=== PATIENT | female | born 1935 | race Caucasian/White ===

== ENCOUNTER 2022-07-15 01:45 | Emergency (ER) | payer MEDICARE, OTHER, SELFPAY ==
[2022-07-15] VITALS (8 sets, daily range): BP systolic 144–162; BP diastolic 67–71; PULSE 68–88; RESP 17; TEMP 36.7; O2SAT 95–99; BMI 23.4
--- NOTE | 2022-07-15 01:57 | ED_ITS ---
HPI - General Adult General Chief complaint: Nausea/Vomiting/Diarrhea Stated complaint: Nausea and Diarreha Time Seen by Provider: 07/15/22 01:51 History of Present Illness HPI narrative: 86-year-old woman with history of hyperlipidemia, reflux, hypothyroidism, depression, prednisone dependent arthritis and stroke earlier this year with left-sided significant weakness, wheelchair required for all that pivot transfers, unable to move her left arm and left ankle-foot orthosis. She pre sents with approximately a week of increasingly watery foul-smelling diarrhea. She has been taking Imodium for the past 2 days has not been helpful. She notes that she was treated for for bladder infection with antibiotics approximately a month ago. She has been taking probiotics. She complains of some mild abdominal pain but no fevers. She has been eating a soft bland diet over the last couple of days. She complains of no headaches, dyspnea or orthopnea. She notes that she is feeling globally weak and is worried that she is dehydrated. Related Data Previous Rx's Medication Instructions Recorded diphenoxylate-atropine 2.5 1 tab PO BID PRN diarrhea #20 tabs 07/15/22 mg-0.025 mg tablet (Lomotil) Allergies Allergy/AdvReac Type Severity Reaction Status Date / Time morphine Allergy Verified 07/15/22 02:48 Sulfa (Sulfonamide Allergy Verified 07/15/22 02:48 Antibiotics) gabapentin AdvReac Verified 07/15/22 02:48 Review of Systems Review of Systems Narrative: Remainder of complete review of systems is otherwise unremarkable except for that included in the HPI. Patient History Medical History (Updated 07/15/22 @ 05:42 by Reyna Urban MD) Arthritis Chronic GERD Hyperlipidemia Hypothyroidism (acquired) Stroke Social History Smoking Status: Never smoker Exam Initial Vital Signs Initial Vital Signs: Vital Signs Temperature 98.0 F 07/15/22 02:11 Pulse Rate 80 07/15/22 02:11 Respiratory Rate 17 07/15/22 02:11 Blood Pressure 144/71 H 07/15/22 02:11 Pulse Oximetry 95 07/15/22 02:11 Oxygen Delivery Method 07/15/22 02:11 General: Frail, chronically ill-appearing in no acute distress. Able to participate completely with history and physical. HEENT: Moist mucous membranes, normal sclera with reactive pupils, Neck: No JVD, supple Respiratory: Lungs are clear to auscultation, no wheezing no rales no rhonchi. Full and symmetrical air movement Cardiac: Regular rate and rhythm no murmurs no bruits Abdomen: Soft, tender from mid epigastrium into the left lower quadrant without rebound or guarding, good bowel tones, no flank pain Skin: Warm and dry, no rashes Neurologic: Left arm paralysis, left leg weakness. Left facial droop. Unchanged from her baseline Extremities: No trauma, well perfused, left AFO in place Psych: Cooperative, appropriate insight and affect Course Orders Ordered: ED Orders 07/15/22 02:13 Consult to [facility] [place] - Priming Powder Premix Blender Stat 07/15/22 02:15 Urinalysis and Microscopic Stat 07/15/22 02:16 CT abdomen pelvis w con Stat 07/15/22 02:38 GI Panel (Film Array) Stat 07/15/22 02:55 Complete Blood Count AUTO DIFF Stat Comprehensive Metabolic Panel Stat Magnesium Stat 07/15/22 03:00 COVID19 -Nasal RAPID/Pre-Proc Stat Discontinued Medications Diphenoxylate HCl/Atropine (Diphenoxylate/Atrop 2.5/0.025 Tablet) 2 each PO NOW ONE Stop: 07/15/22 05:21 Last Admin: 07/15/22 05:33 Dose: 2 each Sodium Chloride (Normal Saline 0.9%) 1,000 mls @ 1,000 mls/hr IV BOLUS ONE Stop: 07/15/22 04:40 Last Admin: 07/15/22 05:00 Dose: 1,000 mls/hr Documented By: DEANA Magnesium Sulfate (Magnesium Sulfate) 2 gm in 50 mls @ 150 mls/hr IV NOW ONE Stop: 07/15/22 04:00 Last Infusion: 07/15/22 05:00 Dose: 0 mls/hr Documented By: DEANA Co-signed By: LEESA Admin: 07/15/22 04:40 Dose: 150 mls/hr Documented By: DEANA Co-signed By: LEESA Potassium Chloride (Potassium Chloride 20 Meq/15 Ml Udc) 40 meq PO NOW ONE Stop: 07/15/22 03:42 Last Admin: 07/15/22 05:00 Dose: 40 meq Documented By: DEANA Vital Signs Vital signs: Vital Signs - 8 hr 07/15/22 02:11 07/15/22 04:04 07/15/22 04:30 Temperature 98.0 F Pulse Rate 80 77 88 Respiratory Rate 17 Blood Pressure 144/71 H Pulse Oximetry 95 98 99 Oxygen Delivery Method Room Air 07/15/22 04:44 07/15/22 04:44 Temperature Pulse Rate 85 Respiratory Rate Blood Pressure 158/68 H Pulse Oximetry 98 Oxygen Delivery Method Medical Decision Making Lab Data Result diagrams: 07/15/22 02:55 07/15/22 02:55 Labs: Lab Results 07/15/22 07/15/22 07/15/22 Range/Units 02:38 02:55 02:55 WBC 9.4 (4.5-11.0) X10^3/uL RBC 4.13 (4.0-5.2) X10^6/uL Hgb 12.8 (12.0-16.0) g/dL Hct 37.1 (36-46) % MCV 89.8 (80-100) fL MCH 31.0 (26-34) PG MCHC 34.5 (30-36) % RDW 13.8 (11.6-14.8) % Plt Count 224 (150-400) X10^3/uL Neut % (Auto) 79.9 H (50-75) % Lymph % (Auto) 9.8 L (25-40) % Desha % (Auto) 9.4 (3-14) % Eos % (Auto) 0.5 L (2-4) % Baso % (Auto) 0.4 (0-2) % Neut # (Auto) 7500 H (4225-9740) /uL Lymph # (Auto) 900 L (1666-7499) /uL Desha # (Auto) 900 (0-900) /uL Eos # (Auto) 0 (0-450) /uL Baso # (Auto) 0 (0-100) /uL Sodium 135 L (137-145) mmol/L Potassium 3.2 L (3.4-5.1) mmol/L Chloride 103 (98-107) mmol/L Carbon Dioxide 27 (22-32) mmol/L BUN 16 (7-17) mg/dL Creatinine 0.78 (0.52-1.04) mg/dL Estimated GFR > 60 (>60) mL/min BUN/Creatinine Ratio 20.5 (6-22) Glucose 117 H (80-110) mg/dL Calcium 8.8 (8.4-10.2) mg/dL Magnesium 1.0 L (1.6-2.3) mg/dL Total Bilirubin 1.3 (0.2-1.3) mg/dL AST 24 (14-36) IU/L ALT 17 (<35) IU/L Alkaline Phosphatase 63 (38-126) U/L Total Protein 6.3 (6.3-8.2) g/dL Albumin 3.3 L (3.5-5.0) g/dL Globulin 3.0 (1.7-4.1) g/dL Albumin/Globulin Ratio 1.1 (1.0-2.8) Stl C. cayetanensis PCR Not detected (Not Detect) Stool Rotavirus (PCR) Not detected (Not Detect) Stool Adenovirus (PCR) Not detected (Not Detect) Stool Astrovirus (PCR) Not detected (Not Detect) Stool Cryptosporidium PCR Not detected (Not Detect) Stl E.coli Shiga Tox PCR Not detected (Not Detect) St Sh/Enteroin Ecoli PCR Not detected (Not Detect) Stool E coli O157 PCR Not Reportable Stl Enterotoxigenic E PCR Not detected (Not Detect) Stool EPEC (PCR) Not detected (Not Detect) Stl E. histolytica PCR Not detected (Not Detect) Stool Giardia Lamblia PCR Not detected (Not Detect) Stool Sapovirus (PCR) Not detected (Not Detect) Stl P. shigelloides PCR Not detected (Not Detect) St Y.enterocolitica PCR Not detected (Not Detect) Stool Vibrio (PCR) Not detected (Not Detect) Stl Vibrio cholerae PCR Not detected (Not Detect) Stl Enteroaggr Ecoli PCR Not detected (Not Detect) Stl Norovirus GI/GII PCR Not detected (Not Detect) Campylobacter (PCR) Not detected (Not Detect) C. difficile Tox (PCR) Not detected (Not Detect) SARS-CoV-2 (PCR) (Negative) Salmonella (PCR) Not detected (Not Detect) 07/15/22 Range/Units 03:00 WBC (4.5-11.0) X10^3/uL RBC (4.0-5.2) X10^6/uL Hgb (12.0-16.0) g/dL Hct (36-46) % MCV (80-100) fL MCH (26-34) PG MCHC (30-36) % RDW (11.6-14.8) % Plt Count (150-400) X10^3/uL Neut % (Auto) (50-75) % Lymph % (Auto) (25-40) % Desha % (Auto) (3-14) % Eos % (Auto) (2-4) % Baso % (Auto) (0-2) % Neut # (Auto) (5092-8685) /uL Lymph # (Auto) (9356-7796) /uL Desha # (Auto) (0-900) /uL Eos # (Auto) (0-450) /uL Baso # (Auto) (0-100) /uL Sodium (137-145) mmol/L Potassium (3.4-5.1) mmol/L Chloride (98-107) mmol/L Carbon Dioxide (22-32) mmol/L BUN (7-17) mg/dL Creatinine (0.52-1.04) mg/dL Estimated GFR (>60) mL/min BUN/Creatinine Ratio (6-22) Glucose (80-110) mg/dL Calcium (8.4-10.2) mg/dL Magnesium (1.6-2.3) mg/dL Total Bilirubin (0.2-1.3) mg/dL AST (14-36) IU/L ALT (<35) IU/L Alkaline Phosphatase (38-126) U/L Total Protein (6.3-8.2) g/dL Albumin (3.5-5.0) g/dL Globulin (1.7-4.1) g/dL Albumin/Globulin Ratio (1.0-2.8) Stl C. cayetanensis PCR (Not Detect) Stool Rotavirus (PCR) (Not Detect) Stool Adenovirus (PCR) (Not Detect) Stool Astrovirus (PCR) (Not Detect) Stool Cryptosporidium PCR (Not Detect) Stl E.coli Shiga Tox PCR (Not Detect) St Sh/Enteroin Ecoli PCR (Not Detect) Stool E coli O157 PCR Stl Enterotoxigenic E PCR (Not Detect) Stool EPEC (PCR) (Not Detect) Stl E. histolytica PCR (Not Detect) Stool Giardia Lamblia PCR (Not Detect) Stool Sapovirus (PCR) (Not Detect) Stl P. shigelloides PCR (Not Detect) St Y.enterocolitica PCR (Not Detect) Stool Vibrio (PCR) (Not Detect) Stl Vibrio cholerae PCR (Not Detect) Stl Enteroaggr Ecoli PCR (Not Detect) Stl Norovirus GI/GII PCR (Not Detect) Campylobacter (PCR) (Not Detect) C. difficile Tox (PCR) (Not Detect) SARS-CoV-2 (PCR) Negative (Negative) Salmonella (PCR) (Not Detect) Imaging Data CT scan - abdomen/pelvis: Radiologist's Impression: Diffuse circumferential wall thickening of the descending and sigmoid colon with pericolonic inflammatory changes compatible with colitis. Questionable left perianal fistula to the left gluteal creases detailed. Prominent uterine vessels which can be seen in the setting of pelvic congestion syndrome. MDM Narrative Medical decision making narrative: 86-year-old woman presents with approximately a week of diarrhea. She has mild hypokalemia and mild hypo magnesemia. After electrolyte replacement and a L of fluid she is feeling significantly better. There is no evidence of Clostridium difficile or other virus identified on her PCR stool sample. CT scan shows colitis without acute diverticulitis, free air, free fluid or surgical abnormalities. The CT scan mentions a ?questionable left perianal fistula to left gluteal crease?. There is no clinical correlation to explain this questionable CT finding. Patient has significant support at home. They are working on getting her into assisted living after her recent stroke. She is able to eat will give her a dose of Lomotil and a prescription to continue at home. Lab her return with fevers, diarrhea persisting more than the next number of days, any blood in the stool or worsening abdominal pain. She will be safe for home discharge Discharge Plan Departure Patient Disposition: Home Clinical Impression: Diarrhea, Colitis Instructions: DI for Colitis Activity Restrictions/Additional Instructions: Thank you for coming in today With your stool sample we did not find any obvious viral explanation for your diarrhea. There is no abnormal bacterial pathology, parasites or Clostridium difficile. Your CT scan does show that your colon is inflamed on the left side which is what is causing the bit of pain that you are experiencing. There is no evidence of infection or surgical abnormality. Your potassium and magnesium were slightly low and you were mildly dehydrated. All of these were replaced and you said that you are feeling better. At this point using medication to slow down the diarrhea and giving your body time to heal is the appropriate treatment. I am going to give you a prescription for Lomotil to see if this is more effective for you than the Imodium has been. Please do continue to try and stay as hydrated as possible and the bland simple diet you have been eating continues to be appropriate. I would recommend avoiding milk products until you are completely over the diarrhea. If you are noticing increasing pain, fevers, blood in your stools or new findings that would be very appropriate to return to the emergency department. Prescriptions: New diphenoxylate-atropine [Lomotil] 2.5-0.025 mg tablet 1 tab PO BID PRN (Reason: diarrhea) Qty: 20 0RF
--- NOTE | 2022-07-15 02:16 | DI.CT.S_ITS ---
PROCEDURE: CT ABDOMEN PELVIS W CON INDICATIONS: left side abdominal pain and diarrhea TECHNIQUE: After the administration of intravenous contrast, axial sections acquired from the lung bases to the pubic symphysis. Coronal and sagittal reformats were performed. For radiation dose reduction, the following was used: automated exposure control, adjustment of mA and/or kV according to patient size. COMPARISON: None. FINDINGS: Image quality: Excellent. Lung bases: No pleural effusion. ABDOMEN: Liver: Unremarkable. Gallbladder: Not visualized, presumed surgically absent Biliary ducts: Mildly prominent caliber within normal limits for age and post cholecystectomy state Pancreas: Unremarkable. Spleen: Unremarkable. Adrenal Glands: Unremarkable. Kidneys and Ureters: Unremarkable. Stomach and Bowel: Mild wall thickening of the sigmoid colon and to a lesser extent the descending colon. Mild prominence of the Vasa recta and possible adjacent fat stranding. No bowel obstruction. Possible/equivocal perianal fistula in the soft tissues of the left ischial anal fossa tracking towards the left aspect of the cleft (). Peritoneum: No substantial intraperitoneal fluid. No free air. Ventral Wall: No hernias. Abdominal Nodes: No retroperitoneal or mesenteric adenopathy by size criteria. Vessels: Aorta and inferior vena cava are normal in size. PELVIS: Pelvic Organs: Unremarkable. Bladder: Unremarkable. Pelvic Nodes: No enlarged lymph nodes. Miscellaneous: No hernias are seen. Bones: Multilevel degenerative change of the visualized spine. 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 IMPRESSION: 1. Wall thickening of the sigmoid colon and to a lesser extent the descending colon suggestive of a colitis with infectious or inflammatory etiologies possible. 2. Possible/equivocal left perianal fistula versus artifact. Correlation with physical examination may be helpful. If clinically indicated MRI of the pelvis with and without contrast, perianal fistula protocol, could be obtained for further evaluation. This report is concordant with the preliminary report. Dictated by: Carlos Medeiros M.D. on 07/15/2022 at 8:04 Approved by: Carlos Medeiros M.D. on 07/15/2022 at 8:20
--- NOTE | 2022-07-15 02:24 | PC.NURSE ---
pt 2 person assist to commode, then when finished to the stretcher
[2022-07-15 03:10] LABS: Add Manual Diff / Slide Review NO; Basophils Absolute Auto 0 /uL (0-100); Basophils Percent Auto 0.4 % (0-2); Eosinophils Absolute Auto 0 /uL (0-450); Eosinophils Percent Auto 0.5 % (2-4); Hematocrit 37.1 % (36-46); Hemoglobin 12.8 g/dL (12.0-16.0); Lymphocytes Absolute Auto 900 /uL (1100-4500); Lymphocytes Percent Auto 9.8 % (25-40); Mean Corpuscular HGB Conc 34.5 % (30-36); Mean Corpuscular Volume 89.8 fL (80-100); Monocytes Absolute Auto 900 /uL (0-900); Monocytes Percent Auto 9.4 % (3-14); Neutrophils Absolute Auto 7500 /uL (1500-7000); Neutrophils Percent Auto 79.9 % (50-75); Platelet Count 224 X10^3/uL (150-400); Red Blood Cell Count 4.13 X10^6/uL (4.0-5.2); Red Cell Distribution Width 13.8 % (11.6-14.8); White Blood Cell Count 9.4 X10^3/uL (4.5-11.0)
[2022-07-15 03:29] LABS: Alanine Aminotransferase 17 IU/L (<35); Albumin 3.3 g/dL (3.5-5.0); Albumin Globulin Ratio 1.1 (1.0-2.8); Alkaline Phosphatase 63 U/L (38-126); Aspartate Aminotransferase 24 IU/L (14-36); BUN Creatinine Ratio 20.5 (6-22); Bilirubin Total 1.3 mg/dL (0.2-1.3); Blood Urea Nitrogen 16 mg/dL (7-17); Calcium 8.8 mg/dL (8.4-10.2); Carbon Dioxide 27 mmol/L (22-32); Chloride 103 mmol/L (98-107); Estimated Glomerular Filt Rate > 60 mL/min (>60); Glucose 117 mg/dL (80-110); HEMOLYSIS < 15 (0-50); Potassium 3.2 mmol/L (3.4-5.1); Sodium 135 mmol/L (137-145); Total Protein 6.3 g/dL (6.3-8.2)
[2022-07-15 03:32] LABS: COVID19 -Nasal RAPID Negative (Negative)
[2022-07-15 04:04] LABS: Adenovirus F 40/41 Not Detected (Not Detect); Astrovirus Not Detected (Not Detect); Campylobacter Not Detected (Not Detect); Clostridium difficile toxin AB Not Detected (Not Detect); Cryptosporidium Not Detected (Not Detect); Cyclospora cayetanensis Not Detected (Not Detect); Entamoeba histolytica Not Detected (Not Detect); Enteroaggregative E.coli Not Detected (Not Detect); Enteropathogenic E.coli Not Detected (Not Detect); Enterotoxigenic E.coli It/st Not Detected (Not Detect); Giardia lamblia Not Detected (Not Detect); Norovirus GI/GII Not Detected (Not Detect); Plesiomonsa shigelloides Not Detected (Not Detect); Rotavirus A Not Detected (Not Detect); Salmonella Not Detected (Not Detect); Sapovirus Not Detected (Not Detect); Shiga-like toxin-prod E.coli Not Detected (Not Detect); Shigella/Enteroinvasive E.coli Not Detected (Not Detect); Vibrio Not Detected (Not Detect); Vibrio cholerae Not Detected (Not Detect); Yersinia enterocolitica Not Detected (Not Detect)
[2022-07-15] MEDS: MAGNESIUM SULFATE 2 GM/50 ML PIGGYBACK IV (04:40)
[2022-07-15] MEDS: SODIUM CHLORIDE 0.9% 1,000 ML 1000 ML IV (05:00)
[2022-07-15] MEDS: POTASSIUM CHLORIDE 20 MEQ/15 ML UDC 40 MEQ PO (05:00)
[2022-07-15] MEDS: DIPHENOXYLATE/ATROP 2.5/0.025 TABLET 2 EACH PO (05:33)
== END 2022-07-15 07:06 | disposition home or self-care (01) ==
PROVIDERS: Emergency Provider Emergency Medicine
DX: K52.9 Noninfective gastroenteritis and colitis, unspecified (principal); Z20.822 Contact with and (suspected) exposure to COVID-19
CPT/HCPCS: 36415; 74177; 80053; 83735; 85025; 87507; 87635; 96360; 96361; 99284; C9803; J3475; Q9967

== ENCOUNTER 2022-07-19 09:47 | Emergency (ER) | payer MEDICARE, OTHER, SELFPAY ==
[2022-07-19] VITALS (20 sets, daily range): BP systolic 106–164; BP diastolic 64–92; PULSE 75–92; RESP 12–26; TEMP 36.6; O2SAT 93–98
[2022-07-19 11:01] LABS: Add Manual Diff / Slide Review NO; Basophils Absolute Auto 0 /uL (0-100); Basophils Percent Auto 0.5 % (0-2); Eosinophils Absolute Auto 0 /uL (0-450); Eosinophils Percent Auto 0.7 % (2-4); Hematocrit 35.6 % (36-46); Hemoglobin 12.2 g/dL (12.0-16.0); Lymphocytes Absolute Auto 500 /uL (1100-4500); Lymphocytes Percent Auto 8.3 % (25-40); Mean Corpuscular HGB Conc 34.2 % (30-36); Mean Corpuscular Hemoglobin 30.6 PG (26-34); Mean Corpuscular Volume 89.3 fL (80-100); Monocytes Absolute Auto 600 /uL (0-900); Monocytes Percent Auto 9.3 % (3-14); Neutrophils Absolute Auto 5000 /uL (1500-7000); Neutrophils Percent Auto 81.2 % (50-75); Platelet Count 243 X10^3/uL (150-400); Red Blood Cell Count 3.99 X10^6/uL (4.0-5.2); Red Cell Distribution Width 13.4 % (11.6-14.8); White Blood Cell Count 6.2 X10^3/uL (4.5-11.0)
[2022-07-19 11:05] LABS: Alanine Aminotransferase 15 IU/L (<35); Albumin Globulin Ratio 1.1 (1.0-2.8); Alkaline Phosphatase 60 U/L (38-126); Aspartate Aminotransferase 24 IU/L (14-36); BUN Creatinine Ratio 21.3 (6-22); Bilirubin Total 0.6 mg/dL (0.2-1.3); Blood Urea Nitrogen 13 mg/dL (7-17); Calcium 8.8 mg/dL (8.4-10.2); Carbon Dioxide 29 mmol/L (22-32); Chloride 103 mmol/L (98-107); Estimated Glomerular Filt Rate > 60 mL/min (>60); Globulin 2.7 g/dL (1.7-4.1); Glucose 99 mg/dL (80-110); HEMOLYSIS < 15 (0-50); Sodium 136 mmol/L (137-145); Total Protein 5.7 g/dL (6.3-8.2)
[2022-07-19 11:06] LABS: Lactate (Lactic Acid) 0.9 mmol/L (0.7-2.1)
[2022-07-19] MEDS: SODIUM CHLORIDE 0.9% 1,000 ML 1000 ML IV (11:18)
--- NOTE | 2022-07-19 11:19 | ED.NAVMDI ---
HPI - Nausea/Vomiting/Diarrhea General Chief complaint: Nausea/Vomiting/Diarrhea Stated complaint: cholitis Time Seen by Provider: 07/19/22 11:19 Source: patient and family Mode of arrival: Ambulatory Limitations: no limitations History of Present Illness HPI Narrative: This is a 86-year-old female with history stroke with left-sided deficits, hypertension, dyslipidemia, osteoporosis, osteoarthritis who presents with complaint of persistent diarrhea. Patient was seen here on July 15 for same. She states it has been continuing it has been brownish in color with quite watery unformed with no black or bright red blood. Typically happens 4-5 times in a 24 hour. It has been going on for several weeks. She was on stool softeners which were stopped about 7 days ago she is been taking Imodium as well as Lomotil without much improvement. Denies fevers, denies chills. Some mild nausea but no vomiting. Describes some abdominal pain little bit more on the left radiating towards the right lower abdomen. No back or flank pain. No dysuria urgency or frequency. No vaginal bleeding. No rectal pain. Denies dizziness or syncope. No chest pain or shortness of breath. She is been more fatigued in her cognition is been a little bit lessened which they suspect is from dehydration. Patient has not been taking a lot in orally in terms of solids or liquids. She is on no anticoagulation, no known history of atrial fibrillation, she is on medications including prednisone, lisinopril, levothyroxine, omeprazole and duloxetine daily. She is had prior cholecystectomy, knee surgery and elbow surgery in the past for orthopedic issues. Allergic to gabapentin, sulfa and narcotics. No tobacco or alcohol for 45 years, no illicit. Her family had her stop coffee about a week ago. She sees Dr. Pizarro on [facility] primary care. She has been using a brat diet at home. Related Data Home Medications Medication Instructions Recorded Confirmed atorvastatin 40 mg tablet 40 mg PO DAILY 07/19/22 07/19/22 duloxetine 20 mg capsule,delayed 20 mg PO DAILY 07/19/22 07/19/22 release levothyroxine 88 mcg tablet 88 mcg PO DAILY 07/19/22 07/19/22 lisinopril 40 mg tablet 40 mg PO DAILY 07/19/22 07/19/22 omeprazole 20 mg capsule,delayed 20 mg PO DAILY 07/19/22 07/19/22 release prednisone 1 mg tablet mg 07/19/22 Previous Rx's Medication Instructions Recorded diphenoxylate-atropine 2.5 1 tab PO BID PRN diarrhea #20 tabs 07/15/22 mg-0.025 mg tablet (Lomotil) amoxicillin 875 mg-potassium 1 tab PO Q12H #20 tabs 07/19/22 clavulanate 125 mg tablet Allergies Allergy/AdvReac Type Severity Reaction Status Date / Time morphine Allergy Verified 07/19/22 10:11 Sulfa (Sulfonamide Allergy Verified 07/19/22 10:11 Antibiotics) gabapentin AdvReac Verified 07/19/22 10:11 Review of Systems Review of Systems ROS Unobtainable: All systems reviewed & are unremarkable except as noted in HPI and below Patient History Medical History Arthritis Chronic GERD Hyperlipidemia Hypothyroidism (acquired) Stroke Social History Smoking Status: Never smoker Smoking Status: Never smoker alcohol intake frequency: 0-2 drinks per day Substance Use Type: does not use Exam Narrative Exam Narrative: GENERAL: Alert and oriented x three, mild distress HEENT: Head normocephalic, atraumatic, EOMI, pupils reactive, face symmetric, moist mucous membranes NECK: Supple, full range of motion CARDIOVASCULAR: Regular rate and rhythm without murmurs, rubs or gallops. RESPIRATORY: Breath sounds equal bilaterally, no wheezes rales or rhonchi. ABDOMEN: Soft, nontender. Normoactive bowel sounds all 4 quadrants. No guarding or rebound, rigidity, no mass. Patient feels somewhat distended suprapubically. : No CVA tenderness EXTREMITIES: Normal range of motion, no clubbing or edema. Neurovascularly intact NEUROLOGICAL: Cranial nerves II through XII grossly intact. Moving all extremities SKIN: Warm, dry, no petechiae, no rashes or lesions. Initial Vital Signs Initial Vital Signs: Vital Signs Temperature 98 F 07/19/22 10:08 Pulse Rate 92 H 07/19/22 10:08 Respiratory Rate 17 07/19/22 10:08 Blood Pressure 153/69 H 07/19/22 10:08 Pulse Oximetry 95 07/19/22 10:08 Oxygen Delivery Method 07/19/22 10:08 Course Orders Ordered: ED Orders 07/19/22 10:40 Lipase Stat 07/19/22 10:46 CBC Auto Diff [Complete Blood Count AUTO DIFF] Stat CMP [Comprehensive Metabolic Panel] Stat Lactate (Lactic Acid) Stat 07/19/22 11:43 EKG-12 Lead Stat 07/19/22 12:36 CT abdomen pelvis w con Stat 07/19/22 13:51 GI Panel (Film Array) Stat 07/19/22 16:45 UA Complete [Urinalysis and Microscopic] Stat Sodium Chloride (Normal Saline 0.9%) 1,000 mls @ 125 mls/hr IV CONT CRYSTAL Last Admin: 07/19/22 14:23 Dose: 125 mls/hr Documented By: JEAN Discontinued Medications Amoxicillin/Clavulanate Potassium (Amoxicillin/Clav 875/125 Mg) 1 tab PO NOW ONE Stop: 07/19/22 18:12 Last Admin: 07/19/22 18:53 Dose: 1 tab Documented By: JEAN Amoxicillin/Clavulanate Potassium (Amoxicillin/Clav 875/125 Mg) 1 tab PO NOW ONE Stop: 07/19/22 18:12 Last Admin: 07/19/22 18:53 Dose: 1 tab Documented By: JEAN Sodium Chloride (Normal Saline 0.9%) 1,000 mls @ 1,000 mls/hr IV BOLUS ONE Stop: 07/19/22 11:07 Last Infusion: 07/19/22 12:22 Dose: 0 mls/hr Documented By: Admin: 07/19/22 11:18 Dose: 1,000 mls/hr Documented By: JEAN Potassium Chloride (Potassium Chloride 20 Meq/15 Ml Udc) 40 meq PO NOW ONE Stop: 07/19/22 11:44 Last Admin: 07/19/22 11:56 Dose: 40 meq Documented By: JEAN Vital Signs Vital signs: Vital Signs - 8 hr 07/19/22 11:24 07/19/22 11:25 07/19/22 11:25 Pulse Rate 88 88 Respiratory Rate 18 13 Blood Pressure 106/64 Pulse Oximetry 97 97 Oxygen Delivery Method 07/19/22 11:30 07/19/22 11:30 07/19/22 12:00 Pulse Rate 84 Respiratory Rate 13 Blood Pressure 157/70 H 164/77 H Pulse Oximetry 97 Oxygen Delivery Method Room Air 07/19/22 12:00 07/19/22 12:30 07/19/22 13:00 Pulse Rate 86 83 89 Respiratory Rate 18 22 18 Blood Pressure Pulse Oximetry 97 98 Oxygen Delivery Method 07/19/22 13:30 07/19/22 14:04 07/19/22 14:27 Pulse Rate 80 82 Respiratory Rate Blood Pressure 139/84 Pulse Oximetry 93 Oxygen Delivery Method 07/19/22 14:27 07/19/22 14:30 07/19/22 14:30 Pulse Rate 79 77 Respiratory Rate 20 17 Blood Pressure 139/79 Pulse Oximetry 97 97 Oxygen Delivery Method 07/19/22 15:00 07/19/22 15:00 07/19/22 15:30 Pulse Rate 78 Respiratory Rate 15 Blood Pressure 130/79 136/78 Pulse Oximetry 96 Oxygen Delivery Method 07/19/22 15:30 07/19/22 16:00 07/19/22 16:00 Pulse Rate 79 89 Respiratory Rate 12 20 Blood Pressure 142/86 H Pulse Oximetry 96 Oxygen Delivery Method 07/19/22 16:30 07/19/22 16:30 07/19/22 16:47 Pulse Rate 75 86 Respiratory Rate 16 20 Blood Pressure 139/72 Pulse Oximetry 97 Oxygen Delivery Method 07/19/22 16:47 07/19/22 17:00 07/19/22 17:00 Pulse Rate 79 Respiratory Rate 19 Blood Pressure 136/84 133/82 Pulse Oximetry 97 Oxygen Delivery Method 07/19/22 17:30 07/19/22 17:30 07/19/22 18:00 Pulse Rate 79 Respiratory Rate 17 Blood Pressure 140/88 154/92 H Pulse Oximetry 97 Oxygen Delivery Method 07/19/22 18:00 07/19/22 18:30 07/19/22 18:30 Pulse Rate 90 83 Respiratory Rate 18 26 H Blood Pressure 152/74 H Pulse Oximetry 97 97 Oxygen Delivery Method MDM - Nausea/Vomiting/Diarrhea Lab Data Result diagrams: 07/19/22 10:46 07/19/22 10:46 Labs: Lab Results 07/19/22 07/19/22 07/19/22 Range/Units 10:40 10:46 10:46 WBC 6.2 (4.5-11.0) X10^3/uL RBC 3.99 L (4.0-5.2) X10^6/uL Hgb 12.2 (12.0-16.0) g/dL Hct 35.6 L (36-46) % MCV 89.3 (80-100) fL MCH 30.6 (26-34) PG MCHC 34.2 (30-36) % RDW 13.4 (11.6-14.8) % Plt Count 243 (150-400) X10^3/uL Neut % (Auto) 81.2 H (50-75) % Lymph % (Auto) 8.3 L (25-40) % [place] % (Auto) 9.3 (3-14) % Eos % (Auto) 0.7 L (2-4) % Baso % (Auto) 0.5 (0-2) % Neut # (Auto) 5000 (6408-2778) /uL Lymph # (Auto) 500 L (1800-8854) /uL [place] # (Auto) 600 (0-900) /uL Eos # (Auto) 0 (0-450) /uL Baso # (Auto) 0 (0-100) /uL Sodium 136 L (137-145) mmol/L Potassium 3.0 L (3.4-5.1) mmol/L Chloride 103 (98-107) mmol/L Carbon Dioxide 29 (22-32) mmol/L BUN 13 (7-17) mg/dL Creatinine 0.61 (0.52-1.04) mg/dL Estimated GFR > 60 (>60) mL/min BUN/Creatinine Ratio 21.3 (6-22) Glucose 99 (80-110) mg/dL Lactate (0.7-2.1) mmol/L Calcium 8.8 (8.4-10.2) mg/dL Total Bilirubin 0.6 (0.2-1.3) mg/dL AST 24 (14-36) IU/L ALT 15 (<35) IU/L Alkaline Phosphatase 60 (38-126) U/L Total Protein 5.7 L (6.3-8.2) g/dL Albumin 3.0 L (3.5-5.0) g/dL Globulin 2.7 (1.7-4.1) g/dL Albumin/Globulin Ratio 1.1 (1.0-2.8) Lipase 52 (23-300) U/L Urine Color Urine Appearance Urine pH (4.5-8.0) Ur Specific [place] (1.000-1.035) Urine Protein (Negative) Urine Glucose (UA) (Negative) g/dL Urine Ketones (NEGATIVE) Urine Occult Blood (Negative) Urine Nitrate (Negative) Urine Bilirubin (NEGATIVE) Urine Urobilinogen (0.2) E.U./dL Ur Leukocyte Esterase (NEGATIVE) Urine RBC (0-5/HPF) Urine WBC (0-5/HPF) Urine Bacteria (None) Ur Culture Indicated? Stl C. cayetanensis PCR (Not Detect) Stool Rotavirus (PCR) (Not Detect) Stool Adenovirus (PCR) (Not Detect) Stool Astrovirus (PCR) (Not Detect) Stool Cryptosporidium PCR (Not Detect) Stl E.coli Shiga Tox PCR (Not Detect) St Sh/Enteroin Ecoli PCR (Not Detect) Stool E coli O157 PCR Stl Enterotoxigenic E PCR (Not Detect) Stool EPEC (PCR) (Not Detect) Stl E. histolytica PCR (Not Detect) Stool Giardia Lamblia PCR (Not Detect) Stool Sapovirus (PCR) (Not Detect) Stl P. shigelloides PCR (Not Detect) St Y.enterocolitica PCR (Not Detect) Stool Vibrio (PCR) (Not Detect) Stl Vibrio cholerae PCR (Not Detect) Stl Enteroaggr Ecoli PCR (Not Detect) Stl Norovirus GI/GII PCR (Not Detect) Campylobacter (PCR) (Not Detect) C. difficile Tox (PCR) (Not Detect) Salmonella (PCR) (Not Detect) 07/19/22 07/19/22 07/19/22 Range/Units 10:46 13:51 16:45 WBC (4.5-11.0) X10^3/uL RBC (4.0-5.2) X10^6/uL Hgb (12.0-16.0) g/dL Hct (36-46) % MCV (80-100) fL MCH (26-34) PG MCHC (30-36) % RDW (11.6-14.8) % Plt Count (150-400) X10^3/uL Neut % (Auto) (50-75) % Lymph % (Auto) (25-40) % [place] % (Auto) (3-14) % Eos % (Auto) (2-4) % Baso % (Auto) (0-2) % Neut # (Auto) (0680-1057) /uL Lymph # (Auto) (6471-3191) /uL [place] # (Auto) (0-900) /uL Eos # (Auto) (0-450) /uL Baso # (Auto) (0-100) /uL Sodium (137-145) mmol/L Potassium (3.4-5.1) mmol/L Chloride (98-107) mmol/L Carbon Dioxide (22-32) mmol/L BUN (7-17) mg/dL Creatinine (0.52-1.04) mg/dL Estimated GFR (>60) mL/min BUN/Creatinine Ratio (6-22) Glucose (80-110) mg/dL Lactate 0.9 (0.7-2.1) mmol/L Calcium (8.4-10.2) mg/dL Total Bilirubin (0.2-1.3) mg/dL AST (14-36) IU/L ALT (<35) IU/L Alkaline Phosphatase (38-126) U/L Total Protein (6.3-8.2) g/dL Albumin (3.5-5.0) g/dL Globulin (1.7-4.1) g/dL Albumin/Globulin Ratio (1.0-2.8) Lipase (23-300) U/L Urine Color Yellow Urine Appearance Clear Urine pH 5.0 (4.5-8.0) Ur Specific [place] 1.010 (1.000-1.035) Urine Protein Negative (Negative) Urine Glucose (UA) Negative (Negative) g/dL Urine Ketones Negative (NEGATIVE) Urine Occult Blood Negative (Negative) Urine Nitrate Negative (Negative) Urine Bilirubin Negative (NEGATIVE) Urine Urobilinogen 0.2 (0.2) E.U./dL Ur Leukocyte Esterase Negative (NEGATIVE) Urine RBC 0-1/hpf (0-5/HPF) Urine WBC 0-1/hpf (0-5/HPF) Urine Bacteria None seen (None) Ur Culture Indicated? Cult not indicated Stl C. cayetanensis PCR Not detected (Not Detect) Stool Rotavirus (PCR) Not detected (Not Detect) Stool Adenovirus (PCR) Not detected (Not Detect) Stool Astrovirus (PCR) Not detected (Not Detect) Stool Cryptosporidium PCR Not detected (Not Detect) Stl E.coli Shiga Tox PCR Not detected (Not Detect) St Sh/Enteroin Ecoli PCR Not detected (Not Detect) Stool E coli O157 PCR Not Reportable Stl Enterotoxigenic E PCR Not detected (Not Detect) Stool EPEC (PCR) Not detected (Not Detect) Stl E. histolytica PCR Not detected (Not Detect) Stool Giardia Lamblia PCR Not detected (Not Detect) Stool Sapovirus (PCR) Not detected (Not Detect) Stl P. shigelloides PCR Not detected (Not Detect) St Y.enterocolitica PCR Not detected (Not Detect) Stool Vibrio (PCR) Not detected (Not Detect) Stl Vibrio cholerae PCR Not detected (Not Detect) Stl Enteroaggr Ecoli PCR Not detected (Not Detect) Stl Norovirus GI/GII PCR Not detected (Not Detect) Campylobacter (PCR) Not detected (Not Detect) C. difficile Tox (PCR) Not detected (Not Detect) Salmonella (PCR) Not detected (Not Detect) Imaging Data CT scan - abdomen/pelvis: Radiologist's Impression: [address] [address] [address] Scan Report Signed Patient: Kiah Moreno MR#: [id number] : 1935 Acct:[id number] Age/Sex: 86 / F Date of Service: 07/19/22 Loc: ED Accession Number: [id number] ?? Procedure: CT abdomen pelvis w con Ordering Provider: Bertha Emmanuel D.O. PROCEDURE:? CT ABDOMEN PELVIS W CON ? INDICATIONS:? persistent diarrhea ? TECHNIQUE:? After the administration of intravenous contrast, axial sections acquired from the lung bases to the pubic symphysis.? Coronal and sagittal reformats were performed.? For radiation dose reduction, the following was used:? automated exposure control, adjustment of mA and/or kV according to patient size.? ? COMPARISON:? [facility], CT, CT ABDOMEN PELVIS W CON, 07/15/2022, 3:40. ? FINDINGS:? Image quality:? Excellent.? ? Lung bases:? Unremarkable. Heart:? No significant findings. ? ABDOMEN: Liver:? Unremarkable.? ? Gallbladder:? Gallbladder is absent. Biliary ducts:? Unremarkable.? ? Pancreas:? Unremarkable.? ? Spleen:? Unremarkable.? ? Adrenal Glands:? Unremarkable.? ? Kidneys and Ureters:? Unremarkable.? ? ? Stomach and Bowel:? There is bowel wall thickening in the rectum and throughout the colon that is suspicious for a nonspecific proctocolitis.? Liquid stool is seen throughout the colon.? Normal appendix.? Small bowel loops are unremarkable. Peritoneum:? No abnormal intraperitoneal fluid.? No free air.? ? Ventral Wall: ? No hernias.? Abdominal Nodes:? No retroperitoneal or mesenteric adenopathy by size criteria.? Vessels:? Aorta and inferior vena cava are normal in size.? Moderate aortic atherosclerotic calcifications. ? PELVIS: Pelvic Organs:? Unremarkable.? ? Bladder:? Unremarkable.? ? Pelvic Nodes: No enlarged lymph nodes.? Miscellaneous: No hernias are seen. ? ? ? Bones:? 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 Multilevel degenerative changes are present. ? ? IMPRESSION:? Diffuse bowel wall thickening throughout the colon and rectum is suspicious for a nonspecific proctocolitis. Findings appear worse when compared to the CT from 07/15/2022.? ? Dictated by: Carlos Magallanes M.D. on 07/19/2022 at 13:41 ? ? Approved by: Carlos Magallanes M.D. on 07/19/2022 at 13:45? ECG Data Attestation: I personally reviewed and interpreted this ECG as follows: Prior ECG tracings: not available for review Interpretation: Sinus rhythm, nonspecific change, rate 84 MO 142 QRS of 90 QTC of 458. MDM Narrative Medical decision making narrative: 86-year-old female with persistent diarrhea found to have colitis on the 6th on CT with a questionable left perianal fistula, but was felt not to be the case on examination on visit, not appreciated today on imaging. Patient's labs show low potassium at 3 which patient tolerated having replaced orally, CT abdomen pelvis shows progressive colitis but no proof, no abscess or other significant changes. Signs of sepsis, patient is not significantly dehydrated otherwise, GI panel was obtained again which is negative, urine was obtained as well patient was retaining somewhat does not show any clear infection otherwise. At this time I really do not have any clear indication for observation or inpatient status discussed with patient family she is still having frequent diarrhea discussed she can use Lomotil or Imodium although it has been minimally helpful with her persistent symptoms and progressive colitis I would potentially cover her with an antibiotic. Discussed risk spread versus benefits family would like to given 1st dose orally here, given extra dose for the morning as the pharmacies being closed on the weekend and prescription to complete. Return precautions were discussed with patient and family at bedside. Discharge Plan Departure Patient Disposition: Home Clinical Impression: Colitis Instructions: DI for Colitis Activity Restrictions/Additional Instructions: Your imaging does show colitis or inflammation of the colon. Your potassium was slightly low today and was replaced here in the emergency department. You may continue to use ibuprofen and/or Lomotil as instructed. Start oral antibiotics take the 1st dose this evening, take the 2nd dose in the morning and then fill your prescription tomorrow. Prescription was sent to [facility] in [place] Please return for fevers, new or worsening abdominal pain, persistent vomiting, black or bloody stools, lightheadedness or passing out, new chest pain or shortness of breath or other new or concerning symptoms. Prescriptions: New amoxicillin-pot clavulanate 875-125 mg tablet 1 tab PO Q12H Qty: 20 0RF No Action diphenoxylate-atropine [Lomotil] 2.5-0.025 mg tablet 1 tab PO BID PRN (Reason: diarrhea) Qty: 20 0RF atorvastatin 40 mg tablet 40 mg PO DAILY levothyroxine 88 mcg tablet 88 mcg PO DAILY Label Comments: Take 1 tablet by mouth daily and an extra tablet 1 day per week prednisone 1 mg tablet Label Comments: TAKE THREE TABLETS BY MOUTH DAILY omeprazole 20 mg capsule,delayed release(DR/EC) 20 mg PO DAILY Label Comments: Take 1 capsule by mouth daily 30 minutes prior to a meal lisinopril 40 mg tablet 40 mg PO DAILY Label Comments: TAKE 1 TABLET BY MOUTH EVERY DAY FOR HIGH BLOOD PRESSURE duloxetine 20 mg capsule,delayed release(DR/EC) 20 mg PO DAILY Label Comments: Take 1 capsule by mouth once daily. Increase to 2 capsules after 1-2 weeks as tolerated
[2022-07-19] MEDS: POTASSIUM CHLORIDE 20 MEQ/15 ML UDC 40 MEQ PO (11:56)
[2022-07-19 12:12] LABS: Lipase 52 U/L (23-300)
--- NOTE | 2022-07-19 12:36 | DI.CT.S_ITS ---
PROCEDURE: CT ABDOMEN PELVIS W CON INDICATIONS: persistent diarrhea TECHNIQUE: After the administration of intravenous contrast, axial sections acquired from the lung bases to the pubic symphysis. Coronal and sagittal reformats were performed. For radiation dose reduction, the following was used: automated exposure control, adjustment of mA and/or kV according to patient size. COMPARISON: [facility], CT, CT ABDOMEN PELVIS W CON, 07/15/2022, 3:40. FINDINGS: Image quality: Excellent. Lung bases: Unremarkable. Heart: No significant findings. ABDOMEN: Liver: Unremarkable. Gallbladder: Gallbladder is absent. Biliary ducts: Unremarkable. Pancreas: Unremarkable. Spleen: Unremarkable. Adrenal Glands: Unremarkable. Kidneys and Ureters: Unremarkable. Stomach and Bowel: There is bowel wall thickening in the rectum and throughout the colon that is suspicious for a nonspecific proctocolitis. Liquid stool is seen throughout the colon. Normal appendix. Small bowel loops are unremarkable. Peritoneum: No abnormal intraperitoneal fluid. No free air. Ventral Wall: No hernias. Abdominal Nodes: No retroperitoneal or mesenteric adenopathy by size criteria. Vessels: Aorta and inferior vena cava are normal in size. Moderate aortic atherosclerotic calcifications. PELVIS: Pelvic Organs: Unremarkable. Bladder: Unremarkable. Pelvic Nodes: No enlarged lymph nodes. Miscellaneous: No hernias are seen. 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 Multilevel degenerative changes are present. IMPRESSION: Diffuse bowel wall thickening throughout the colon and rectum is suspicious for a nonspecific proctocolitis. Findings appear worse when compared to the CT from 07/15/2022. Dictated by: Carlos Magallanes M.D. on 07/19/2022 at 13:41 Approved by: Carlos Magallanes M.D. on 07/19/2022 at 13:45
[2022-07-19] MEDS: SODIUM CHLORIDE 0.9% 1,000 ML 125 ML IV (14:23)
[2022-07-19 15:13] LABS: Campylobacter Not Detected (Not Detect); Clostridium difficile toxin AB Not Detected (Not Detect); Plesiomonsa shigelloides Not Detected (Not Detect)
[2022-07-19 15:14] LABS: Adenovirus F 40/41 Not Detected (Not Detect); Astrovirus Not Detected (Not Detect); Cryptosporidium Not Detected (Not Detect); Cyclospora cayetanensis Not Detected (Not Detect); Entamoeba histolytica Not Detected (Not Detect); Enteroaggregative E.coli Not Detected (Not Detect); Enteropathogenic E.coli Not Detected (Not Detect); Enterotoxigenic E.coli It/st Not Detected (Not Detect); Giardia lamblia Not Detected (Not Detect); Norovirus GI/GII Not Detected (Not Detect); Rotavirus A Not Detected (Not Detect); Salmonella Not Detected (Not Detect); Sapovirus Not Detected (Not Detect); Shiga-like toxin-prod E.coli Not Detected (Not Detect); Shigella/Enteroinvasive E.coli Not Detected (Not Detect); Vibrio Not Detected (Not Detect); Vibrio cholerae Not Detected (Not Detect); Yersinia enterocolitica Not Detected (Not Detect)
[2022-07-19 17:24] LABS: Appearance Urine UA CLEAR; Bilirubin Urine UA NEGATIVE (NEGATIVE); Color Urine UA YELLOW; Glucose Urine UA NEGATIVE (Negative); Ketones Urine UA NEGATIVE (NEGATIVE); Leukocyte Esterase Urine UA NEGATIVE (NEGATIVE); Nitrite Urine UA NEGATIVE (Negative); Occult Blood Urine UA NEGATIVE (Negative); Protein Urine UA NEGATIVE (Negative); Urobilinogen Urine UA 0.2 E.U./dL (0.2)
[2022-07-19 17:32] LABS: Bacteria Urine None Seen; Culture Indicated Urine Cult Not Indicated; RBC Urine 0-1/HPF (0-5/HPF); WBC Urine 0-1/HPF (0-5/HPF)
[2022-07-19] MEDS: AMOXICILLIN/CLAV 875/125 MG 1 TAB PO ×2 (18:53)
== END 2022-07-19 19:22 | disposition home or self-care (01) ==
PROVIDERS: Emergency Provider Emergency Medicine
DX: K52.9 Noninfective gastroenteritis and colitis, unspecified (principal); R07.9 Chest pain, unspecified
CPT/HCPCS: 36415; 51701; 51798; 74177; 80053; 81001; 83605; 83690; 85025; 87507; 93005; 93010; 96360; 96361; 99284; Q9967

== ENCOUNTER 2022-07-25 16:52 | Observation (INO) | payer MEDICARE, OTHER, SELFPAY ==
[2022-07-25 17:03] VITALS: PULSE 97; O2SAT 97
[2022-07-25 17:04] VITALS: BP 187/81; PULSE 97; O2SAT 97
[2022-07-25 17:06] VITALS: BP 187/81; PULSE 93; RESP 16; TEMP 37; O2SAT 97; BMI 25.0
[2022-07-25 17:41] LABS: Add Manual Diff / Slide Review NO; Basophils Absolute Auto 0 /uL (0-100); Basophils Percent Auto 0.3 % (0-2); Eosinophils Absolute Auto 0 /uL (0-450); Eosinophils Percent Auto 0.4 % (2-4); Hematocrit 35.3 % (36-46); Hemoglobin 12.2 g/dL (12.0-16.0); Lymphocytes Absolute Auto 400 /uL (1100-4500); Lymphocytes Percent Auto 5.3 % (25-40); Mean Corpuscular HGB Conc 34.5 % (30-36); Mean Corpuscular Hemoglobin 30.9 PG (26-34); Mean Corpuscular Volume 89.6 fL (80-100); Monocytes Absolute Auto 300 /uL (0-900); Monocytes Percent Auto 4.2 % (3-14); Neutrophils Absolute Auto 7300 /uL (1500-7000); Neutrophils Percent Auto 89.8 % (50-75); Platelet Count 247 X10^3/uL (150-400); Red Blood Cell Count 3.94 X10^6/uL (4.0-5.2); White Blood Cell Count 8.1 X10^3/uL (4.5-11.0)
[2022-07-25 17:55] LABS: Alanine Aminotransferase 13 IU/L (<35); Albumin 2.9 g/dL (3.5-5.0); Albumin Globulin Ratio 1.1 (1.0-2.8); Alkaline Phosphatase 49 U/L (38-126); Aspartate Aminotransferase 25 IU/L (14-36); BUN Creatinine Ratio 22.2 (6-22); Bilirubin Total 0.4 mg/dL (0.2-1.3); Blood Urea Nitrogen 14 mg/dL (7-17); Calcium 8.9 mg/dL (8.4-10.2); Carbon Dioxide 29 mmol/L (22-32); Chloride 105 mmol/L (98-107); Estimated Glomerular Filt Rate > 60 mL/min (>60); Globulin 2.6 g/dL (1.7-4.1); Glucose 143 mg/dL (80-110); HEMOLYSIS < 15 (0-50); Phosphorous 2.7 mg/dL (2.8-4.1); Potassium 3.1 mmol/L (3.4-5.1); Sodium 139 mmol/L (137-145); Total Protein 5.5 g/dL (6.3-8.2)
--- NOTE | 2022-07-25 17:57 | ED_ITS ---
HPI - Nausea/Vomiting/Diarrhea <Swathi Hylton [facility] - Last Filed: 07/25/22 20:46> General Chief complaint: Nausea/Vomiting/Diarrhea Stated complaint: Digestive problems, 21 days Time Seen by Provider: 07/25/22 17:11 History of Present Illness HPI Narrative: This is an 86-year-old female with history of diarrhea for the last 21 days which has been evaluated in the emergency department 2 times on 07/15 and 07/19/22 and her stool was evaluated to not be infectious however patient has required IV hydration 2 times and had low electrolyte values requiring repla cement. Patient is currently on Augmentin for colitis, has been using Imodium 1-2 times daily, denies any nausea, vomiting, fever, chills. Denies any blood in her stool, her urine was evaluated most recently on the which was negative for infection as well. Patient had abdominal pelvis CT on 07/15, 07/19/2022, the 1st 1 showed wall thickening of the sigmoid colon suggestive of colitis and possible perianal fistula versus artifact, CT from 07/19/2022 shows diffuse bowel wall thickening throughout the colon and rectum suspicious for nonspecific proctocolitis. Patient and her daughter reports today that her symptoms have not improved at all and her diarrhea has only persisted with anais rn for pancolitis. Patient is immunosuppressed on 3 mg of prednisone daily, states she can not come off of it because every time she does her symptoms are worse. Related Data Home Medications Medication Instructions Recorded Confirmed atorvastatin 40 mg tablet 40 mg PO DAILY 07/19/22 07/25/22 duloxetine 20 mg capsule,delayed 20 mg PO DAILY 07/19/22 07/25/22 release levothyroxine 88 mcg tablet 88 mcg PO DAILY 07/19/22 07/25/22 lisinopril 40 mg tablet 40 mg PO BEDTIME 07/19/22 07/25/22 omeprazole 20 mg capsule,delayed 20 mg PO BEDTIME 07/19/22 07/25/22 release prednisone 1 mg tablet 3 mg PO DAILY 07/19/22 07/25/22 Previous Rx's Medication Instructions Recorded diphenoxylate-atropine 2.5 1 tab PO BID PRN diarrhea #20 tabs 07/15/22 mg-0.025 mg tablet (Lomotil) Allergies Allergy/AdvReac Type Severity Reaction Status Date / Time morphine Allergy Verified 07/19/22 10:11 Sulfa (Sulfonamide Allergy Verified 07/19/22 10:11 Antibiotics) latex AdvReac Mild Verified 07/25/22 21:32 gabapentin AdvReac Verified 07/19/22 10:11 Review of Systems <SAMMY Chavez - Last Filed: 07/25/22 20:46> Review of Systems Narrative: Review of systems is negative for acute abnormalities unless otherwise noted in HPI Patient History <SAMMY Chavez - Last Filed: 07/25/22 20:46> Medical History Arthritis Chronic GERD Hyperlipidemia Hypothyroidism (acquired) Stroke Social History household members: children Smoking Status: Former smoker alcohol intake: former Smoking Status: Never smoker alcohol intake frequency: 0-2 drinks per day Substance Use Type: does not use Exam <SAMMY Chavez - Last Filed: 07/25/22 20:46> Narrative Exam Narrative: Reviewed vitals signs and nursing notes. General: cooperative, comfortable, in no acute distress, well groomed HEENT: symmetrical facial expressions, moist mucous membranes Cardiovascular: regular rate and rhythm, no peripheral edema, warm extremities Respiratory: normal effort, able to speak in complete sentences, without wheezing, stridor, or abnormal breath sounds. No retractions or tachypnea. GI: abdomen soft, nontender to palpation, nondistended, without masses, rebound tenderness or exquisite tenderness with exam. MSK: moves all extremities, neurovascularly intact, no weakness, normal tone Skin: brisk capillary refill, without pallor or erythema Neuro: normal speech and cognition, A&O x3, ambulatory, clear speech Psych: mental status is grossly normal, congruent mood, normal affect, pleasant and cooperative Initial Vital Signs Initial Vital Signs: Vital Signs Pulse Rate 97 H 07/25/22 17:03 Pulse Oximetry 97 07/25/22 17:03 <Reyna Urban MD - Last Filed: 07/26/22 05:14> Initial Vital Signs Initial Vital Signs: Vital Signs Pulse Rate 97 H 07/25/22 17:03 Pulse Oximetry 97 07/25/22 17:03 <Bertrand Mota DO - Last Filed: 07/26/22 07:04> Initial Vital Signs Initial Vital Signs: Vital Signs Pulse Rate 97 H 07/25/22 17:03 Pulse Oximetry 97 07/25/22 17:03 Course <SAMMY Chavez - Last Filed: 07/25/22 20:46> Orders Ordered: ED Orders 07/26/22 00:00 UA dip and micro [Urinalysis and Microscopic] Stat Acetaminophen (Acetaminophen 325 Mg Tablet) 650 mg PO Q6HR PRN PRN Reason: Fever/Mild Pain (1-3) Duloxetine HCl (Duloxetine 20 Mg Capsule) 20 mg PO DAILY [facility] Dextrose/Sodium Chloride (Dextrose 5%-0.9% Ns) 1,000 mls @ 100 mls/hr IV CONT [facility] Last Admin: 07/25/22 21:34 Dose: 100 mls/hr Documented By: ANNALISE Levothyroxine Sodium (Levothyroxine 88 Mcg Tablet) 88 mcg PO 0600 [facility] Last Admin: 07/26/22 06:31 Dose: 88 mcg Documented By: [facility] Lisinopril (Lisinopril 20 Mg Tablet) 40 mg PO BEDTIME [facility] Last Admin: 07/25/22 22:38 Dose: 40 mg Documented By: [facility] Pantoprazole Sodium (Pantoprazole Dr 20 Mg Tablet) 20 mg PO BEDTIME [facility] Last Admin: 07/25/22 22:39 Dose: 20 mg Documented By: [facility] Prednisone (Prednisone 1 Mg Tablet) 3 mg PO DAILY [facility] Discontinued Medications Acetaminophen (Acetaminophen 325 Mg Tablet) 650 mg PO NOW ONE Stop: 07/25/22 17:31 Last Admin: 07/25/22 18:02 Dose: 650 mg Documented By: RB Lactated Ringer's (Lactated Ringers) 1,000 mls @ 1,000 mls/hr IV BOLUS ONE Stop: 07/25/22 18:29 Last Admin: 07/25/22 18:02 Dose: 1,000 mls/hr Documented By: RB Magnesium Sulfate (Magnesium Sulfate) 20 gm in 500 mls @ 50 mls/hr IV CONT [facility] Magnesium Sulfate (Magnesium Sulfate) 2 gm in 50 mls @ 150 mls/hr IV NOW ONE Stop: 07/25/22 18:30 Last Infusion: 07/25/22 19:34 Dose: 0 mls/hr Documented By: RB Co-signed By: MLSary Admin: 07/25/22 18:56 Dose: 150 mls/hr Documented By: MAGDALENE Co-signed By: COOPER Piperacillin Sod/Tazobactam (Sod 4.5 gm/ Sodium Chloride) 100 mls @ 200 mls/hr IV NOW ONE Stop: 07/25/22 19:29 Last Admin: 07/25/22 20:52 Dose: Not Given Documented By: ANNALISE Ceftriaxone Sodium 2,000 mg/ (Sodium Chloride) 100 mls @ 200 mls/hr IV NOW ONE Stop: 07/25/22 19:37 Last Admin: 07/25/22 19:46 Dose: 200 mls/hr Documented By: JESSICA Metronidazole (Flagyl) 500 mg in 100 mls @ 100 mls/hr IV Q6H [facility] Last Infusion: 07/25/22 22:40 Dose: 0 mls/hr Documented By: Admin: 07/25/22 21:38 Dose: 100 mls/hr Documented By: ANNALISE Metronidazole (Flagyl) 500 mg in 100 mls @ 100 mls/hr IV Q6H [facility] Ketorolac Tromethamine (Ketorolac 30 Mg/Ml Vial) 15 mg IV NOW ONE Stop: 07/25/22 18:08 Last Admin: 07/25/22 18:55 Dose: 15 mg Documented By: MAGDALENE Lisinopril (Lisinopril 20 Mg Tablet) 40 mg PO DAILY [facility] Loperamide HCl (Loperamide 2 Mg/15 Ml Udc) 4 mg PO NOW ONE Stop: 07/25/22 17:31 Last Admin: 07/25/22 18:09 Dose: 4 mg Documented By: RB Methylprednisolone (Methylprednisolone 125 Mg/2 Ml Vial) 125 mg IV NOW ONE Stop: 07/25/22 18:34 Last Admin: 07/25/22 18:55 Dose: 125 mg Documented By: MAGDALENE Pantoprazole Sodium (Pantoprazole Dr 20 Mg Tablet) 20 mg PO DAILY [facility] Potassium Chloride (Potassium Chloride 20 Meq/15 Ml Udc) 40 meq PO NOW ONE Stop: 07/25/22 18:04 Last Admin: 07/25/22 18:54 Dose: 40 meq Documented By: MAGDALENE Simethicone (Simethicone 80 Mg Tablet) 80 mg PO NOW ONE Stop: 07/25/22 17:31 Last Admin: 07/25/22 18:54 Dose: 80 mg Documented By: CSD Consultations Consultation #1: Consultation with Dr. Kayla Andrade from General surgery who recommends retesting patient for C difficile, admission for rehydration and electrolyte deficiencies and proctocolitis, Vital Signs Vital signs: Vital Signs - 8 hr 07/25/22 17:06 07/25/22 17:03 07/25/22 17:04 Temperature 98.6 F Pulse Rate 93 H 97 H 97 H Respiratory Rate 16 Blood Pressure 187/81 H Pulse Oximetry 97 97 97 Oxygen Delivery Method Room Air 07/25/22 17:04 Temperature Pulse Rate Respiratory Rate Blood Pressure 187/81 H Pulse Oximetry Oxygen Delivery Method <Reyna Urban MD - Last Filed: 07/26/22 05:14> Orders Ordered: ED Orders 07/26/22 00:00 UA dip and micro [Urinalysis and Microscopic] Stat Acetaminophen (Acetaminophen 325 Mg Tablet) 650 mg PO Q6HR PRN PRN Reason: Fever/Mild Pain (1-3) Duloxetine HCl (Duloxetine 20 Mg Capsule) 20 mg PO DAILY [facility] Dextrose/Sodium Chloride (Dextrose 5%-0.9% Ns) 1,000 mls @ 100 mls/hr IV CONT [facility] Last Admin: 07/25/22 21:34 Dose: 100 mls/hr Documented By: [facility] Levothyroxine Sodium (Levothyroxine 88 Mcg Tablet) 88 mcg PO 0600 [facility] Last Admin: 07/26/22 06:31 Dose: 88 mcg Documented By: [facility] Lisinopril (Lisinopril 20 Mg Tablet) 40 mg PO BEDTIME [facility] Last Admin: 07/25/22 22:38 Dose: 40 mg Documented By: [facility] Pantoprazole Sodium (Pantoprazole Dr 20 Mg Tablet) 20 mg PO BEDTIME [facility] Last Admin: 07/25/22 22:39 Dose: 20 mg Documented By: [facility] Prednisone (Prednisone 1 Mg Tablet) 3 mg PO DAILY [facility] Discontinued Medications Acetaminophen (Acetaminophen 325 Mg Tablet) 650 mg PO NOW ONE Stop: 07/25/22 17:31 Last Admin: 07/25/22 18:02 Dose: 650 mg Documented By: RB Lactated Ringer's (Lactated Ringers) 1,000 mls @ 1,000 mls/hr IV BOLUS ONE Stop: 07/25/22 18:29 Last Admin: 07/25/22 18:02 Dose: 1,000 mls/hr Documented By: RB Magnesium Sulfate (Magnesium Sulfate) 20 gm in 500 mls @ 50 mls/hr IV CONT [facility] Magnesium Sulfate (Magnesium Sulfate) 2 gm in 50 mls @ 150 mls/hr IV NOW ONE Stop: 07/25/22 18:30 Last Infusion: 07/25/22 19:34 Dose: 0 mls/hr Documented By: RB Co-signed By: LESLYM Admin: 07/25/22 18:56 Dose: 150 mls/hr Documented By: MAGDALENE Co-signed By: COOPER Piperacillin Sod/Tazobactam (Sod 4.5 gm/ Sodium Chloride) 100 mls @ 200 mls/hr IV NOW ONE Stop: 07/25/22 19:29 Last Admin: 07/25/22 20:52 Dose: Not Given Documented By: ANNALISE Ceftriaxone Sodium 2,000 mg/ (Sodium Chloride) 100 mls @ 200 mls/hr IV NOW ONE Stop: 07/25/22 19:37 Last Admin: 07/25/22 19:46 Dose: 200 mls/hr Documented By: JESSICA Metronidazole (Flagyl) 500 mg in 100 mls @ 100 mls/hr IV Q6H [facility] Last Infusion: 07/25/22 22:40 Dose: 0 mls/hr Documented By: Admin: 07/25/22 21:38 Dose: 100 mls/hr Documented By: ANNALISE Metronidazole (Flagyl) 500 mg in 100 mls @ 100 mls/hr IV Q6H [facility] Ketorolac Tromethamine (Ketorolac 30 Mg/Ml Vial) 15 mg IV NOW ONE Stop: 07/25/22 18:08 Last Admin: 07/25/22 18:55 Dose: 15 mg Documented By: MAGDALENE Lisinopril (Lisinopril 20 Mg Tablet) 40 mg PO DAILY [facility] Loperamide HCl (Loperamide 2 Mg/15 Ml Udc) 4 mg PO NOW ONE Stop: 07/25/22 17:31 Last Admin: 07/25/22 18:09 Dose: 4 mg Documented By: RB Methylprednisolone (Methylprednisolone 125 Mg/2 Ml Vial) 125 mg IV NOW ONE Stop: 07/25/22 18:34 Last Admin: 07/25/22 18:55 Dose: 125 mg Documented By: MAGDALENE Pantoprazole Sodium (Pantoprazole Dr 20 Mg Tablet) 20 mg PO DAILY [facility] Potassium Chloride (Potassium Chloride 20 Meq/15 Ml Udc) 40 meq PO NOW ONE Stop: 07/25/22 18:04 Last Admin: 07/25/22 18:54 Dose: 40 meq Documented By: MAGDALENE Simethicone (Simethicone 80 Mg Tablet) 80 mg PO NOW ONE Stop: 07/25/22 17:31 Last Admin: 07/25/22 18:54 Dose: 80 mg Documented By: MAGDALENE Vital Signs Vital signs: Vital Signs - 8 hr 07/25/22 17:06 07/25/22 17:03 07/25/22 17:04 Temperature 98.6 F Pulse Rate 93 H 97 H 97 H Respiratory Rate 16 Blood Pressure 187/81 H Pulse Oximetry 97 97 97 Oxygen Delivery Method Room Air 07/25/22 17:04 Temperature Pulse Rate Respiratory Rate Blood Pressure 187/81 H Pulse Oximetry Oxygen Delivery Method <Bertrand Mota DO - Last Filed: 07/26/22 07:04> Orders Ordered: ED Orders 07/26/22 00:00 UA dip and micro [Urinalysis and Microscopic] Stat Acetaminophen (Acetaminophen 325 Mg Tablet) 650 mg PO Q6HR PRN PRN Reason: Fever/Mild Pain (1-3) Duloxetine HCl (Duloxetine 20 Mg Capsule) 20 mg PO DAILY [facility] Dextrose/Sodium Chloride (Dextrose 5%-0.9% Ns) 1,000 mls @ 100 mls/hr IV CONT [facility] Last Admin: 07/25/22 21:34 Dose: 100 mls/hr Documented By: ANNALISE Levothyroxine Sodium (Levothyroxine 88 Mcg Tablet) 88 mcg PO 0600 [facility] Last Admin: 07/26/22 06:31 Dose: 88 mcg Documented By: ANNALISE Lisinopril (Lisinopril 20 Mg Tablet) 40 mg PO BEDTIME [facility] Last Admin: 07/25/22 22:38 Dose: 40 mg Documented By: ANNALISE Pantoprazole Sodium (Pantoprazole Dr 20 Mg Tablet) 20 mg PO BEDTIME [facility] Last Admin: 07/25/22 22:39 Dose: 20 mg Documented By: ANNALISE Prednisone (Prednisone 1 Mg Tablet) 3 mg PO DAILY [facility] Discontinued Medications Acetaminophen (Acetaminophen 325 Mg Tablet) 650 mg PO NOW ONE Stop: 07/25/22 17:31 Last Admin: 07/25/22 18:02 Dose: 650 mg Documented By: RB Lactated Ringer's (Lactated Ringers) 1,000 mls @ 1,000 mls/hr IV BOLUS ONE Stop: 07/25/22 18:29 Last Admin: 07/25/22 18:02 Dose: 1,000 mls/hr Documented By: RB Magnesium Sulfate (Magnesium Sulfate) 20 gm in 500 mls @ 50 mls/hr IV CONT [facility] Magnesium Sulfate (Magnesium Sulfate) 2 gm in 50 mls @ 150 mls/hr IV NOW ONE Stop: 07/25/22 18:30 Last Infusion: 07/25/22 19:34 Dose: 0 mls/hr Documented By: RB Co-signed By: SAMANTA Admin: 07/25/22 18:56 Dose: 150 mls/hr Documented By: MAGDALENE Co-signed By: COOPER Piperacillin Sod/Tazobactam (Sod 4.5 gm/ Sodium Chloride) 100 mls @ 200 mls/hr IV NOW ONE Stop: 07/25/22 19:29 Last Admin: 07/25/22 20:52 Dose: Not Given Documented By: ANNALISE Ceftriaxone Sodium 2,000 mg/ (Sodium Chloride) 100 mls @ 200 mls/hr IV NOW ONE Stop: 07/25/22 19:37 Last Admin: 07/25/22 19:46 Dose: 200 mls/hr Documented By: JESSICA Metronidazole (Flagyl) 500 mg in 100 mls @ 100 mls/hr IV Q6H [facility] Last Infusion: 07/25/22 22:40 Dose: 0 mls/hr Documented By: Admin: 07/25/22 21:38 Dose: 100 mls/hr Documented By: ANNALISE Metronidazole (Flagyl) 500 mg in 100 mls @ 100 mls/hr IV Q6H [facility] Ketorolac Tromethamine (Ketorolac 30 Mg/Ml Vial) 15 mg IV NOW ONE Stop: 07/25/22 18:08 Last Admin: 07/25/22 18:55 Dose: 15 mg Documented By: MAGDALENE Lisinopril (Lisinopril 20 Mg Tablet) 40 mg PO DAILY [facility] Loperamide HCl (Loperamide 2 Mg/15 Ml Udc) 4 mg PO NOW ONE Stop: 07/25/22 17:31 Last Admin: 07/25/22 18:09 Dose: 4 mg Documented By: RB Methylprednisolone (Methylprednisolone 125 Mg/2 Ml Vial) 125 mg IV NOW ONE Stop: 07/25/22 18:34 Last Admin: 07/25/22 18:55 Dose: 125 mg Documented By: MAGDALENE Pantoprazole Sodium (Pantoprazole Dr 20 Mg Tablet) 20 mg PO DAILY [facility] Potassium Chloride (Potassium Chloride 20 Meq/15 Ml Udc) 40 meq PO NOW ONE Stop: 07/25/22 18:04 Last Admin: 07/25/22 18:54 Dose: 40 meq Documented By: MAGDALENE Simethicone (Simethicone 80 Mg Tablet) 80 mg PO NOW ONE Stop: 07/25/22 17:31 Last Admin: 07/25/22 18:54 Dose: 80 mg Documented By: MAGDALENE Vital Signs Vital signs: Vital Signs - 8 hr 07/25/22 17:06 07/25/22 17:03 07/25/22 17:04 Temperature 98.6 F Pulse Rate 93 H 97 H 97 H Respiratory Rate 16 Blood Pressure 187/81 H Pulse Oximetry 97 97 97 Oxygen Delivery Method Room Air 07/25/22 17:04 Temperature Pulse Rate Respiratory Rate Blood Pressure 187/81 H Pulse Oximetry Oxygen Delivery Method MDM - Nausea/Vomiting/Diarrhea <SAMMY Chavez - Last Filed: 07/25/22 20:46> Lab Data Result diagrams: 07/26/22 05:16 07/26/22 05:16 Labs: Lab Results 07/25/22 07/25/22 07/25/22 Range/Units 17:20 17:20 17:20 WBC 8.1 (4.5-11.0) X10^3/uL RBC 3.94 L (4.0-5.2) X10^6/uL Hgb 12.2 (12.0-16.0) g/dL Hct 35.3 L (36-46) % MCV 89.6 (80-100) fL MCH 30.9 (26-34) PG MCHC 34.5 (30-36) % RDW 14.0 (11.6-14.8) % Plt Count 247 (150-400) X10^3/uL Neut % (Auto) 89.8 H (50-75) % Lymph % (Auto) 5.3 L (25-40) % [place] % (Auto) 4.2 (3-14) % Eos % (Auto) 0.4 L (2-4) % Baso % (Auto) 0.3 (0-2) % Neut # (Auto) 7300 H (4964-2007) /uL Lymph # (Auto) 400 L (1561-5928) /uL [place] # (Auto) 300 (0-900) /uL Eos # (Auto) 0 (0-450) /uL Baso # (Auto) 0 (0-100) /uL Sodium 139 (137-145) mmol/L Potassium 3.1 L (3.4-5.1) mmol/L Chloride 105 (98-107) mmol/L Carbon Dioxide 29 (22-32) mmol/L BUN 14 (7-17) mg/dL Creatinine 0.63 (0.52-1.04) mg/dL Estimated GFR > 60 (>60) mL/min BUN/Creatinine Ratio 22.2 H (6-22) Glucose 143 H (80-110) mg/dL Lactate (0.7-2.1) mmol/L Calcium 8.9 (8.4-10.2) mg/dL Phosphorus 2.7 L (2.8-4.1) mg/dL Magnesium 1.0 L (1.6-2.3) mg/dL Total Bilirubin 0.4 (0.2-1.3) mg/dL AST 25 (14-36) IU/L ALT 13 (<35) IU/L Alkaline Phosphatase 49 (38-126) U/L C-Reactive Protein 1.0 (<1.0) mg/dL Total Protein 5.5 L (6.3-8.2) g/dL Albumin 2.9 L (3.5-5.0) g/dL Globulin 2.6 (1.7-4.1) g/dL Albumin/Globulin Ratio 1.1 (1.0-2.8) Lipase (23-300) U/L Procalcitonin (<0.5) ng/mL SARS-CoV-2 (PCR) (Negative) 07/25/22 07/25/22 07/25/22 Range/Units 17:20 17:20 17:20 WBC (4.5-11.0) X10^3/uL RBC (4.0-5.2) X10^6/uL Hgb (12.0-16.0) g/dL Hct (36-46) % MCV (80-100) fL MCH (26-34) PG MCHC (30-36) % RDW (11.6-14.8) % Plt Count (150-400) X10^3/uL Neut % (Auto) (50-75) % Lymph % (Auto) (25-40) % [place] % (Auto) (3-14) % Eos % (Auto) (2-4) % Baso % (Auto) (0-2) % Neut # (Auto) (9065-0151) /uL Lymph # (Auto) (2187-1017) /uL [place] # (Auto) (0-900) /uL Eos # (Auto) (0-450) /uL Baso # (Auto) (0-100) /uL Sodium (137-145) mmol/L Potassium (3.4-5.1) mmol/L Chloride (98-107) mmol/L Carbon Dioxide (22-32) mmol/L BUN (7-17) mg/dL Creatinine (0.52-1.04) mg/dL Estimated GFR (>60) mL/min BUN/Creatinine Ratio (6-22) Glucose (80-110) mg/dL Lactate 1.4 (0.7-2.1) mmol/L Calcium (8.4-10.2) mg/dL Phosphorus (2.8-4.1) mg/dL Magnesium (1.6-2.3) mg/dL Total Bilirubin (0.2-1.3) mg/dL AST (14-36) IU/L ALT (<35) IU/L Alkaline Phosphatase (38-126) U/L C-Reactive Protein (<1.0) mg/dL Total Protein (6.3-8.2) g/dL Albumin (3.5-5.0) g/dL Globulin (1.7-4.1) g/dL Albumin/Globulin Ratio (1.0-2.8) Lipase 312 H D (23-300) U/L Procalcitonin 0.22 (<0.5) ng/mL SARS-CoV-2 (PCR) (Negative) 07/25/22 Range/Units 19:30 WBC (4.5-11.0) X10^3/uL RBC (4.0-5.2) X10^6/uL Hgb (12.0-16.0) g/dL Hct (36-46) % MCV (80-100) fL MCH (26-34) PG MCHC (30-36) % RDW (11.6-14.8) % Plt Count (150-400) X10^3/uL Neut % (Auto) (50-75) % Lymph % (Auto) (25-40) % [place] % (Auto) (3-14) % Eos % (Auto) (2-4) % Baso % (Auto) (0-2) % Neut # (Auto) (2895-4855) /uL Lymph # (Auto) (5128-3534) /uL [place] # (Auto) (0-900) /uL Eos # (Auto) (0-450) /uL Baso # (Auto) (0-100) /uL Sodium (137-145) mmol/L Potassium (3.4-5.1) mmol/L Chloride (98-107) mmol/L Carbon Dioxide (22-32) mmol/L BUN (7-17) mg/dL Creatinine (0.52-1.04) mg/dL Estimated GFR (>60) mL/min BUN/Creatinine Ratio (6-22) Glucose (80-110) mg/dL Lactate (0.7-2.1) mmol/L Calcium (8.4-10.2) mg/dL Phosphorus (2.8-4.1) mg/dL Magnesium (1.6-2.3) mg/dL Total Bilirubin (0.2-1.3) mg/dL AST (14-36) IU/L ALT (<35) IU/L Alkaline Phosphatase (38-126) U/L C-Reactive Protein (<1.0) mg/dL Total Protein (6.3-8.2) g/dL Albumin (3.5-5.0) g/dL Globulin (1.7-4.1) g/dL Albumin/Globulin Ratio (1.0-2.8) Lipase (23-300) U/L Procalcitonin (<0.5) ng/mL SARS-CoV-2 (PCR) Negative (Negative) Imaging Data CT scan - abdomen/pelvis: Radiologist's Impression: PROCEDURE: CT ABDOMEN PELVIS W CON INDICATIONS: history of colitis, proctocolitis, and on augmenting TECHNIQUE: After the administration of intravenous contrast, axial sections acquired from the lung bases to the pubic symphysis. Coronal and sagittal reformats were performed. For radiation dose reduction, the following was used: automated exposure control, adjustment of mA and/or kV according to patient size. COMPARISON: [facility], CT, CT ABDOMEN PELVIS W CON, 07/19/2022, 12:46. FINDINGS: Image quality: Excellent. Lung bases: Unremarkable. Heart: No significant findings. ABDOMEN: Liver: Unremarkable. Gallbladder: Is not seen Biliary ducts: Unremarkable. Pancreas: Scattered calcifications within the pancreas, as before. Spleen: Unremarkable. Adrenal Glands: Unremarkable. Kidneys and Ureters: Unremarkable. Stomach and Bowel: Stomach is nondistended. Small bowel is grossly unremarkable appendix mildly prominent, as before, measuring roughly 6 mm definite surrou nding fat stranding. There is moderate thickening the transverse, as well as the distal sigmoid colon and rectum. Peritoneum: No abnormal intraperitoneal fluid. No free air. Ventral Wall: No hernias. Abdominal Nodes: No retroperitoneal or mesenteric adenopathy by size criteria. Vessels: Aorta and inferior vena cava are normal in size. PELVIS: Pelvic Organs: Unremarkable. Bladder: Unremarkable. Pelvic Nodes: No enlarged lymph nodes. Miscellaneous: No hernias are seen. Bones: Bilateral L5-S1 pars interarticularis defects. Grade 1 anterolisthesis of L5 on S1. IMPRESSION: 1. 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 2. No change in mildly appendix. Close clinical follow-up with repeat imaging if clinically warranted is recommended to exclude developing appendicitis. Follow- up colonoscopy is recommended to exclude underlying neoplasm. 3. Chronic pancreatitis. 4. Grade 1 isthmic spondylolisthesis at L5-S1. Dictated by: Arvind Salter M.D. on 07/25/2022 at 18:45 Approved by: Arvind Salter M.D. on 07/25/2022 at 18:47 MDM Narrative Medical decision making narrative: This is an 86-year-old female presents to the emergency department for the 3rd time for ongoing watery diarrhea, states it has been 21 days, she is currently on Augmentin for colitis, comes in today for ongoing symptoms which have not improved at all. CT of her abdomen on 07/19/2022 shows diffuse bowel wall thickening throughout the colon and rectum suspicious for nonspecific proctocolitis, this was a progression from her CT on 07/15/2022 which showed wall thickening of the sigmoid colon and the descending colon. This is the 2nd course of Augmentin patient has been started on, she is also on Lomotil, Imodium, states that she feels gassy, denies any nausea, vomiting, states that she feels hungry and wants to eat and has a good appetite. Denies any blood in her stool, any urinary urgency, frequency, odor or other. GI panel from 07/19/2022 was negative for all infectious pathogens tested. Patient does not have leukocytosis or anemia, hypokalemia at 3.1, she was given 40 mEq of liquid oral potassium, creatinine is 0.63, lactate of 1.4, hypophosphatemia at 2.7, hypomagnesemia at 1.0 she was given 2 g of IV magnesium, CRP is 1.0, procalcitonin is 0.22. COVID PCR is negative, abdominal pelvis CT with contrast shows no significant change in proctocolitis, mild prominence of appendix, small bowel is grossly unremarkable, appendix is mildly prominent as before measuring 6 mm, moderate thickening of the transverse as well as the distal sigmoid colon and rectum. Differential diagnosis includes pancolitis, ulcerative colitis, ischemic colitis, perforated viscus, proctocolitis, infectious abdominal fluid collection. Patient was treated with 2 g of Rocephin, 500 mg of IV Flagyl, discussion with Dr. Jarrett/hospitalist who accepts patient for admission and states that she antibiotics if she has a colonoscopy with biopsy and has not responded to antibiotics yet. <Reyna Urban MD - Last Filed: 07/26/22 05:14> Lab Data Labs: Lab Results 07/25/22 07/25/22 07/25/22 Range/Units 17:20 17:20 17:20 WBC 8.1 (4.5-11.0) X10^3/uL RBC 3.94 L (4.0-5.2) X10^6/uL Hgb 12.2 (12.0-16.0) g/dL Hct 35.3 L (36-46) % MCV 89.6 (80-100) fL MCH 30.9 (26-34) PG MCHC 34.5 (30-36) % RDW 14.0 (11.6-14.8) % Plt Count 247 (150-400) X10^3/uL Neut % (Auto) 89.8 H (50-75) % Lymph % (Auto) 5.3 L (25-40) % [place] % (Auto) 4.2 (3-14) % Eos % (Auto) 0.4 L (2-4) % Baso % (Auto) 0.3 (0-2) % Neut # (Auto) 7300 H (8861-4710) /uL Lymph # (Auto) 400 L (3252-4986) /uL [place] # (Auto) 300 (0-900) /uL Eos # (Auto) 0 (0-450) /uL Baso # (Auto) 0 (0-100) /uL Sodium 139 (137-145) mmol/L Potassium 3.1 L (3.4-5.1) mmol/L Chloride 105 (98-107) mmol/L Carbon Dioxide 29 (22-32) mmol/L BUN 14 (7-17) mg/dL Creatinine 0.63 (0.52-1.04) mg/dL Estimated GFR > 60 (>60) mL/min BUN/Creatinine Ratio 22.2 H (6-22) Glucose 143 H (80-110) mg/dL Lactate (0.7-2.1) mmol/L Calcium 8.9 (8.4-10.2) mg/dL Phosphorus 2.7 L (2.8-4.1) mg/dL Magnesium 1.0 L (1.6-2.3) mg/dL Total Bilirubin 0.4 (0.2-1.3) mg/dL AST 25 (14-36) IU/L ALT 13 (<35) IU/L Alkaline Phosphatase 49 (38-126) U/L C-Reactive Protein 1.0 (<1.0) mg/dL Total Protein 5.5 L (6.3-8.2) g/dL Albumin 2.9 L (3.5-5.0) g/dL Globulin 2.6 (1.7-4.1) g/dL Albumin/Globulin Ratio 1.1 (1.0-2.8) Lipase (23-300) U/L Procalcitonin (<0.5) ng/mL SARS-CoV-2 (PCR) (Negative) 07/25/22 07/25/22 07/25/22 Range/Units 17:20 17:20 17:20 WBC (4.5-11.0) X10^3/uL RBC (4.0-5.2) X10^6/uL Hgb (12.0-16.0) g/dL Hct (36-46) % MCV (80-100) fL MCH (26-34) PG MCHC (30-36) % RDW (11.6-14.8) % Plt Count (150-400) X10^3/uL Neut % (Auto) (50-75) % Lymph % (Auto) (25-40) % [place] % (Auto) (3-14) % Eos % (Auto) (2-4) % Baso % (Auto) (0-2) % Neut # (Auto) (7023-1226) /uL Lymph # (Auto) (2620-7830) /uL [place] # (Auto) (0-900) /uL Eos # (Auto) (0-450) /uL Baso # (Auto) (0-100) /uL Sodium (137-145) mmol/L Potassium (3.4-5.1) mmol/L Chloride (98-107) mmol/L Carbon Dioxide (22-32) mmol/L BUN (7-17) mg/dL Creatinine (0.52-1.04) mg/dL Estimated GFR (>60) mL/min BUN/Creatinine Ratio (6-22) Glucose (80-110) mg/dL Lactate 1.4 (0.7-2.1) mmol/L Calcium (8.4-10.2) mg/dL Phosphorus (2.8-4.1) mg/dL Magnesium (1.6-2.3) mg/dL Total Bilirubin (0.2-1.3) mg/dL AST (14-36) IU/L ALT (<35) IU/L Alkaline Phosphatase (38-126) U/L C-Reactive Protein (<1.0) mg/dL Total Protein (6.3-8.2) g/dL Albumin (3.5-5.0) g/dL Globulin (1.7-4.1) g/dL Albumin/Globulin Ratio (1.0-2.8) Lipase 312 H D (23-300) U/L Procalcitonin 0.22 (<0.5) ng/mL SARS-CoV-2 (PCR) (Negative) 07/25/22 Range/Units 19:30 WBC (4.5-11.0) X10^3/uL RBC (4.0-5.2) X10^6/uL Hgb (12.0-16.0) g/dL Hct (36-46) % MCV (80-100) fL MCH (26-34) PG MCHC (30-36) % RDW (11.6-14.8) % Plt Count (150-400) X10^3/uL Neut % (Auto) (50-75) % Lymph % (Auto) (25-40) % [place] % (Auto) (3-14) % Eos % (Auto) (2-4) % Baso % (Auto) (0-2) % Neut # (Auto) (2900-7429) /uL Lymph # (Auto) (7058-6873) /uL [place] # (Auto) (0-900) /uL Eos # (Auto) (0-450) /uL Baso # (Auto) (0-100) /uL Sodium (137-145) mmol/L Potassium (3.4-5.1) mmol/L Chloride (98-107) mmol/L Carbon Dioxide (22-32) mmol/L BUN (7-17) mg/dL Creatinine (0.52-1.04) mg/dL Estimated GFR (>60) mL/min BUN/Creatinine Ratio (6-22) Glucose (80-110) mg/dL Lactate (0.7-2.1) mmol/L Calcium (8.4-10.2) mg/dL Phosphorus (2.8-4.1) mg/dL Magnesium (1.6-2.3) mg/dL Total Bilirubin (0.2-1.3) mg/dL AST (14-36) IU/L ALT (<35) IU/L Alkaline Phosphatase (38-126) U/L C-Reactive Protein (<1.0) mg/dL Total Protein (6.3-8.2) g/dL Albumin (3.5-5.0) g/dL Globulin (1.7-4.1) g/dL Albumin/Globulin Ratio (1.0-2.8) Lipase (23-300) U/L Procalcitonin (<0.5) ng/mL SARS-CoV-2 (PCR) Negative (Negative) <Bertrand Mota, - Last Filed: 07/26/22 07:04> Lab Data Labs: Lab Results 07/25/22 07/25/22 07/25/22 Range/Units 17:20 17:20 17:20 WBC 8.1 (4.5-11.0) X10^3/uL RBC 3.94 L (4.0-5.2) X10^6/uL Hgb 12.2 (12.0-16.0) g/dL Hct 35.3 L (36-46) % MCV 89.6 (80-100) fL MCH 30.9 (26-34) PG MCHC 34.5 (30-36) % RDW 14.0 (11.6-14.8) % Plt Count 247 (150-400) X10^3/uL Neut % (Auto) 89.8 H (50-75) % Lymph % (Auto) 5.3 L (25-40) % [place] % (Auto) 4.2 (3-14) % Eos % (Auto) 0.4 L (2-4) % Baso % (Auto) 0.3 (0-2) % Neut # (Auto) 7300 H (7002-8409) /uL Lymph # (Auto) 400 L (4212-4203) /uL [place] # (Auto) 300 (0-900) /uL Eos # (Auto) 0 (0-450) /uL Baso # (Auto) 0 (0-100) /uL Sodium 139 (137-145) mmol/L Potassium 3.1 L (3.4-5.1) mmol/L Chloride 105 (98-107) mmol/L Carbon Dioxide 29 (22-32) mmol/L BUN 14 (7-17) mg/dL Creatinine 0.63 (0.52-1.04) mg/dL Estimated GFR > 60 (>60) mL/min BUN/Creatinine Ratio 22.2 H (6-22) Glucose 143 H (80-110) mg/dL Lactate (0.7-2.1) mmol/L Calcium 8.9 (8.4-10.2) mg/dL Phosphorus 2.7 L (2.8-4.1) mg/dL Magnesium 1.0 L (1.6-2.3) mg/dL Total Bilirubin 0.4 (0.2-1.3) mg/dL AST 25 (14-36) IU/L ALT 13 (<35) IU/L Alkaline Phosphatase 49 (38-126) U/L C-Reactive Protein 1.0 (<1.0) mg/dL Total Protein 5.5 L (6.3-8.2) g/dL Albumin 2.9 L (3.5-5.0) g/dL Globulin 2.6 (1.7-4.1) g/dL Albumin/Globulin Ratio 1.1 (1.0-2.8) Lipase (23-300) U/L Procalcitonin (<0.5) ng/mL SARS-CoV-2 (PCR) (Negative) 07/25/22 07/25/22 07/25/22 Range/Units 17:20 17:20 17:20 WBC (4.5-11.0) X10^3/uL RBC (4.0-5.2) X10^6/uL Hgb (12.0-16.0) g/dL Hct (36-46) % MCV (80-100) fL MCH (26-34) PG MCHC (30-36) % RDW (11.6-14.8) % Plt Count (150-400) X10^3/uL Neut % (Auto) (50-75) % Lymph % (Auto) (25-40) % [place] % (Auto) (3-14) % Eos % (Auto) (2-4) % Baso % (Auto) (0-2) % Neut # (Auto) (4458-4651) /uL Lymph # (Auto) (1794-9216) /uL [place] # (Auto) (0-900) /uL Eos # (Auto) (0-450) /uL Baso # (Auto) (0-100) /uL Sodium (137-145) mmol/L Potassium (3.4-5.1) mmol/L Chloride (98-107) mmol/L Carbon Dioxide (22-32) mmol/L BUN (7-17) mg/dL Creatinine (0.52-1.04) mg/dL Estimated GFR (>60) mL/min BUN/Creatinine Ratio (6-22) Glucose (80-110) mg/dL Lactate 1.4 (0.7-2.1) mmol/L Calcium (8.4-10.2) mg/dL Phosphorus (2.8-4.1) mg/dL Magnesium (1.6-2.3) mg/dL Total Bilirubin (0.2-1.3) mg/dL AST (14-36) IU/L ALT (<35) IU/L Alkaline Phosphatase (38-126) U/L C-Reactive Protein (<1.0) mg/dL Total Protein (6.3-8.2) g/dL Albumin (3.5-5.0) g/dL Globulin (1.7-4.1) g/dL Albumin/Globulin Ratio (1.0-2.8) Lipase 312 H D (23-300) U/L Procalcitonin 0.22 (<0.5) ng/mL SARS-CoV-2 (PCR) (Negative) 07/25/22 Range/Units 19:30 WBC (4.5-11.0) X10^3/uL RBC (4.0-5.2) X10^6/uL Hgb (12.0-16.0) g/dL Hct (36-46) % MCV (80-100) fL MCH (26-34) PG MCHC (30-36) % RDW (11.6-14.8) % Plt Count (150-400) X10^3/uL Neut % (Auto) (50-75) % Lymph % (Auto) (25-40) % [place] % (Auto) (3-14) % Eos % (Auto) (2-4) % Baso % (Auto) (0-2) % Neut # (Auto) (7676-8682) /uL Lymph # (Auto) (1995-9347) /uL [place] # (Auto) (0-900) /uL Eos # (Auto) (0-450) /uL Baso # (Auto) (0-100) /uL Sodium (137-145) mmol/L Potassium (3.4-5.1) mmol/L Chloride (98-107) mmol/L Carbon Dioxide (22-32) mmol/L BUN (7-17) mg/dL Creatinine (0.52-1.04) mg/dL Estimated GFR (>60) mL/min BUN/Creatinine Ratio (6-22) Glucose (80-110) mg/dL Lactate (0.7-2.1) mmol/L Calcium (8.4-10.2) mg/dL Phosphorus (2.8-4.1) mg/dL Magnesium (1.6-2.3) mg/dL Total Bilirubin (0.2-1.3) mg/dL AST (14-36) IU/L ALT (<35) IU/L Alkaline Phosphatase (38-126) U/L C-Reactive Protein (<1.0) mg/dL Total Protein (6.3-8.2) g/dL Albumin (3.5-5.0) g/dL Globulin (1.7-4.1) g/dL Albumin/Globulin Ratio (1.0-2.8) Lipase (23-300) U/L Procalcitonin (<0.5) ng/mL SARS-CoV-2 (PCR) Negative (Negative) Discharge Plan Departure Patient Disposition: Admitted as Observation Clinical Impression: Proctocolitis, Dehydration, Hypokalemia due to excessive gastrointestinal loss of potassium, Hypophosphatasia, Hypomagnesemia Diarrhea Qualifiers: Diarrhea type: unspecified type Qualified Code(s): R19.7 - Diarrhea, unspecified Admit Date/Time: 07/25/22 20:02 Admit Provider: [facility] <Reyna Urban MD - Last Filed: 07/26/22 05:14> Cosign ED Attending Cosmendezature Attestation: I was immediately available in the department for consultation throughout this patient's visit. I agree with documentation as above. Reyna Urban MD <Bertrand Mota DO - Last Filed: 07/26/22 07:04> Cosign ED Attending Nadia Attestation: I was immediately available in the department for consultation throughout this patient's visit. I agree with documentation as above. MD Dr Svetlana Collins Co-Sign Statement: I was available for consultation during this patient's emergency department visit. This chart is signed by myself for administrative purposes only. I did not have direct contact with this patient during this visit. They were seen independently by the APC.
[2022-07-25] MEDS: LACTATED RINGERS 1,000 ML 1000 ML IV (18:02)
[2022-07-25] MEDS: ACETAMINOPHEN 325 MG TABLET 650 MG PO (18:02)
--- NOTE | 2022-07-25 18:03 | DI.CT.S_ITS ---
PROCEDURE: CT ABDOMEN PELVIS W CON INDICATIONS: history of colitis, proctocolitis, and on augmenting TECHNIQUE: After the administration of intravenous contrast, axial sections acquired from the lung bases to the pubic symphysis. Coronal and sagittal reformats were performed. For radiation dose reduction, the following was used: automated exposure control, adjustment of mA and/or kV according to patient size. COMPARISON: [facility], CT, CT ABDOMEN PELVIS W CON, 07/19/2022, 12:46. FINDINGS: Image quality: Excellent. Lung bases: Unremarkable. Heart: No significant findings. ABDOMEN: Liver: Unremarkable. Gallbladder: Is not seen Biliary ducts: Unremarkable. Pancreas: Scattered calcifications within the pancreas, as before. Spleen: Unremarkable. Adrenal Glands: Unremarkable. Kidneys and Ureters: Unremarkable. Stomach and Bowel: Stomach is nondistended. Small bowel is grossly unremarkable appendix mildly prominent, as before, measuring roughly 6 mm definite surrounding fat stranding. There is moderate thickening the transverse, as well as the distal sigmoid colon and rectum. Peritoneum: No abnormal intraperitoneal fluid. No free air. Ventral Wall: No hernias. Abdominal Nodes: No retroperitoneal or mesenteric adenopathy by size criteria. Vessels: Aorta and inferior vena cava are normal in size. PELVIS: Pelvic Organs: Unremarkable. Bladder: Unremarkable. Pelvic Nodes: No enlarged lymph nodes. Miscellaneous: No hernias are seen. Bones: Bilateral L5-S1 pars interarticularis defects. Grade 1 anterolisthesis of L5 on S1. IMPRESSION: 1. 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 2. No change in mildly appendix. Close clinical follow-up with repeat imaging if clinically warranted is recommended to exclude developing appendicitis. Follow-up colonoscopy is recommended to exclude underlying neoplasm. 3. Chronic pancreatitis. 4. Grade 1 isthmic spondylolisthesis at L5-S1. Dictated by: Arvind Salter M.D. on 07/25/2022 at 18:45 Approved by: Arvind Salter M.D. on 07/25/2022 at 18:47
[2022-07-25] MEDS: LOPERAMIDE 2 MG/15 ML 4 MG PO (18:09)
[2022-07-25 18:22] LABS: Lactate (Lactic Acid) 1.4 mmol/L (0.7-2.1)
[2022-07-25 18:40] LABS: Procalcitonin 0.22 ng/mL (<0.5)
[2022-07-25] MEDS: POTASSIUM CHLORIDE 20 MEQ/15 ML UDC 40 MEQ PO (18:54)
[2022-07-25] MEDS: SIMETHICONE 80 MG TABLET PO (18:54)
[2022-07-25] MEDS: methylPREDNISolone 125 MG/2 ML VIAL IV (18:55)
[2022-07-25] MEDS: KETOROLAC 30 MG/ML VIAL 15 MG IV (18:55)
[2022-07-25] MEDS: MAGNESIUM SULFATE 2 GM/50 ML PIGGYBACK IV (18:56)
[2022-07-25] MEDS: cefTRIAXone 2,000 MG in SODIUM CHLORIDE 0.9% 100 ML 200 MG IV (19:46)
[2022-07-25 20:04] LABS: COVID19 -Nasal RAPID Negative (Negative)
[2022-07-25 20:09] LABS: Lipase 312 U/L (23-300)
[2022-07-25 20:50] VITALS: BP 168/79; PULSE 78; RESP 18; TEMP 36.8; O2SAT 96
[2022-07-25 21:02] VITALS: BMI 23.8
--- NOTE | 2022-07-25 21:16 | P.HP_ITS ---
History of Present Illness History of Present Illness Date Patient Seen: 07/25/22 Date of Onset of Symptoms: 07/18/22 Chief complaint: Digestive problems, 21 days Narrative: This is an 86-year-old female with history of diarrhea for the last 21 days which has been evaluated in the emergency department 2 times on 07/15 and 07/19/22 and her stool was evaluated to not be infectious however patient has required IV hydration 2 times and had low electrolyte values requiring replacement.? Patient is currently on Augmentin for colitis, has been using Imodium 1-2 times daily, denies any nausea, vomiting, fever, chills.? Denies any blood in her stool, her urine was evaluated most recently on the which was negative for infection as well.? Patient had abdominal pelvis CT on 07/15, 07/19/2022, the 1st 1 showed wall thickening of the sigmoid colon suggestive of colitis and possible perianal fistula versus artifact, CT from 07/19/2022 shows diffuse bowel wall thickening throughout the colon and rectum suspicious for nonspecific proctocolitis.? Patient and her daughter reports today that her symptoms have not improved at all.? Patient is immunosuppressed on 3 mg of prednisone daily, states she can not come off of it because every time she does her symptoms are worse. ER called hospitalist team for further evaluation and admission. We called GI/surgery for further recommendations, pending final recommendations. C diff and other stool studies are also pending at this time. I had further discussion with the family regarding any recent diet changes or medication changes that may have contributed to this. Looks like after the stroke 4 months back patient diet changed to mostly semi-solid and liquid diet and few medication changes 2 months back to help her with the pain but this diarrhea actually started 21 days ago. Again unclear etiology based on what we gained from the history. Patient feels more weak and tired, dehydrated in past few days hence family brought her to the ER. As per the daughter diarrhea happened 4 to 5 times a day watery, no blood, no other color, and past 8-10 days. Oral intake did not change much but feels not enough to keep patient active. After the stroke patient is bed-bound mostly because of the left-sided weakness but working with therapy and regaining her strength a little bit. Patient does seem to have some memory deficits but overall able to answer some questions reasonably. Denies any specific complaints at this time. Other than feeling tired. Patient History Medical History Arthritis Chronic GERD Hyperlipidemia Hypothyroidism (acquired) Stroke Family & Social History Social History: Patient lives by herself but daughters help her in daily activities with some additional help. Especially after the stroke patient dependency significantly increased, family is thinking of transitioning her [place] a [place] [facility] [place]. Safety & Behavioral: Feels Safe in Current Yes Environment Been Physically Hurt or No Threatened By a Person Tobacco & Substance use: Smoking Status Never smoker alcohol intake frequency 0-2 drinks per day Substance Use Type does not use Meds Home Medications and Allergies Home Medications Medication Instructions Recorded Confirmed Type diphenoxylate-atropine 2.5 1 tab PO BID PRN diarrhea #20 tabs 07/15/22 07/19/22 Rx mg-0.025 mg tablet (Lomotil) atorvastatin 40 mg tablet 40 mg PO DAILY 07/19/22 07/19/22 History duloxetine 20 mg capsule,delayed 20 mg PO DAILY 07/19/22 07/19/22 History release levothyroxine 88 mcg tablet 88 mcg PO DAILY 07/19/22 07/19/22 History lisinopril 40 mg tablet 40 mg PO DAILY 07/19/22 07/19/22 History omeprazole 20 mg capsule,delayed 20 mg PO DAILY 07/19/22 07/19/22 History release prednisone 1 mg tablet mg 07/19/22 History Allergies Allergy/AdvReac Type Severity Reaction Status Date / Time morphine Allergy Verified 07/19/22 10:11 Sulfa (Sulfonamide Allergy Verified 07/19/22 10:11 Antibiotics) latex AdvReac Mild Verified 07/25/22 21:32 gabapentin AdvReac Verified 07/19/22 10:11 Review of Systems Review of Systems Narrative: Review of systems done, all system review negative other than as mentioned above in HPI. Exam Vital Signs (past 8 hours): - 07/25/22 17:06 07/25/22 17:03 07/25/22 17:04 Temperature 98.6 F Pulse Rate 93 H 97 H 97 H Respiratory Rate 16 Blood Pressure 187/81 H Pulse Oximetry 97 97 97 Oxygen Delivery Method Room Air 07/25/22 17:04 07/25/22 20:50 Temperature 98.2 F Pulse Rate 78 Respiratory Rate 18 Blood Pressure 187/81 H 168/79 H Pulse Oximetry 96 Oxygen Delivery Method Oxygen Delivery Method Room Air Narrative Exam Narrative: Patient then built, elderly woman, lying in the bed comfortably, positive for left upper extremity and left lower extremity weakness. Unable to do anything with left upper extremity, left lower extremity able to lift the leg above the bed for a few seconds. Right side strength seems to be reasonable. Mild abdominal discomfort in lower quadrants on deep palpation. Bowel sounds heard okay. Constitutional, HEENT, eyes, cardiovascular, pulmonary, GI, skin, neuro, psych examination done, negative other than as mentioned above. Objective Labs Result Diagrams: 07/25/22 17:20 07/25/22 17:20 Labs: Laboratory Results - last 24 hr 07/25/22 07/25/22 07/25/22 17:20 17:20 17:20 WBC 8.1 RBC 3.94 L Hgb 12.2 Hct 35.3 L MCV 89.6 MCH 30.9 MCHC 34.5 RDW 14.0 Plt Count 247 Neut % (Auto) 89.8 H Lymph % (Auto) 5.3 L [place] % (Auto) 4.2 Eos % (Auto) 0.4 L Baso % (Auto) 0.3 Neut # (Auto) 7300 H Lymph # (Auto) 400 L [place] # (Auto) 300 Eos # (Auto) 0 Baso # (Auto) 0 Sodium 139 Potassium 3.1 L Chloride 105 Carbon Dioxide 29 BUN 14 Creatinine 0.63 Estimated GFR > 60 BUN/Creatinine Ratio 22.2 H Glucose 143 H Lactate Calcium 8.9 Phosphorus 2.7 L Magnesium 1.0 L Total Bilirubin 0.4 AST 25 ALT 13 Alkaline Phosphatase 49 C-Reactive Protein 1.0 Total Protein 5.5 L Albumin 2.9 L Globulin 2.6 Albumin/Globulin Ratio 1.1 Lipase Procalcitonin SARS-CoV-2 (PCR) 07/25/22 07/25/22 07/25/22 17:20 17:20 17:20 WBC RBC Hgb Hct MCV MCH MCHC RDW Plt Count Neut % (Auto) Lymph % (Auto) [place] % (Auto) Eos % (Auto) Baso % (Auto) Neut # (Auto) Lymph # (Auto) [place] # (Auto) Eos # (Auto) Baso # (Auto) Sodium Potassium Chloride Carbon Dioxide BUN Creatinine Estimated GFR BUN/Creatinine Ratio Glucose Lactate 1.4 Calcium Phosphorus Magnesium Total Bilirubin AST ALT Alkaline Phosphatase C-Reactive Protein Total Protein Albumin Globulin Albumin/Globulin Ratio Lipase 312 H D Procalcitonin 0.22 SARS-CoV-2 (PCR) 07/25/22 19:30 WBC RBC Hgb Hct MCV MCH MCHC RDW Plt Count Neut % (Auto) Lymph % (Auto) [place] % (Auto) Eos % (Auto) Baso % (Auto) Neut # (Auto) Lymph # (Auto) [place] # (Auto) Eos # (Auto) Baso # (Auto) Sodium Potassium Chloride Carbon Dioxide BUN Creatinine Estimated GFR BUN/Creatinine Ratio Glucose Lactate Calcium Phosphorus Magnesium Total Bilirubin AST ALT Alkaline Phosphatase C-Reactive Protein Total Protein Albumin Globulin Albumin/Globulin Ratio Lipase Procalcitonin SARS-CoV-2 (PCR) Negative Assessment & Plan Assessment and plan (1) Diarrhea: Qualifiers: Diarrhea type: unspecified type Qualified Code(s): R19.7 - Diarrhea, unspecified Status: Acute (2) Colitis: Status: Acute (3) Dehydration: Status: Acute (4) Hypokalemia due to excessive gastrointestinal loss of potassium: Status: Acute (5) Hypophosphatasia: Status: Acute (6) Hypomagnesemia: Status: Acute (7) Proctocolitis: Status: Acute Assessment & Plan narrative: Patient will be admitted for inpatient status with expected length of stay greater than 2 midnights Ongoing diarrhea for more than 3 weeks with unclear etiology, significant dehydration and generalized weakness, concerning prognosis Previous evaluations did not reveal any specific etiology, GI recommendations pending at this time, C diff pending Continue IV fluid resuscitation, I will hold off any further antibiotics at this time while we wait for the stool studies GI is contemplating a possibility of sigmoidoscopy for possible biopsies for further evaluation, final recommendations pending Electrolyte replacement protocol, repeat labs in the morning Continue her steroids at home dose at this time, patient already got 125 mg IV steroids in the ER I am going to hold off on metronidazole and Rocephin initiated by ER, wait for further recommendations from GI in the morning SCDs for DVT prophylaxis, Protonix for GI prophylaxis Home medication reconciliation done Goals of care discussed, patient and family confirms DNR status Care plan extensively discussed with the patient and family, answered all questions Time Spent With Patient Critical Care time: I spent a total of [] minutes of critical care time on this patient's care toda y; this time is exclusive of procedural time.
[2022-07-25] MEDS: DEXTROSE 5%-0.9% NS 1,000 ML 100 ML IV (21:34)
[2022-07-25] MEDS: metroNIDAZOLE 500 MG/100 ML PIGGYBACK 100 MG IV (21:38)
--- NOTE | 2022-07-25 22:10 | PC.ADMIT ---
[address] [facility] Admission Note: The patient,Kiah Moreno,86 y/o, was given written information regarding hospital policies, unit procedures and contact persons. Patient's smoking status: Former smoker. Vital Signs - 8 hr 07/25/22 17:06 07/25/22 17:03 07/25/22 17:04 Temperature 98.6 F Pulse Rate 93 H 97 H 97 H Respiratory Rate 16 Blood Pressure 187/81 H Pulse Oximetry 97 97 97 Oxygen Delivery Method Room Air 07/25/22 17:04 07/25/22 20:50 07/25/22 22:03 Temperature 98.2 F Pulse Rate 78 Respiratory Rate 18 Blood Pressure 187/81 H 168/79 H Pulse Oximetry 96 Oxygen Delivery Method Room Air patient admitted to room 219 per stretcher from ER. Is alert and oriented but seems forgetful as will ask the same question multiple times. Had CVA past January and speech still seems slightly slurred but understandable. Slightly MAKAH and does not have hearing aids. Breath sounds CTA with RA sat of 96%. HRR w/telemetry reading of SR. BP elevated at 168/79. Denies nausea. BT present and abdomen is soft; complains of gas-y sensation but denies pain. Has been having watery stools at home which is what brought patient to the hospital. Prior to having diarrhea was continent of B&B but having increased problems with continence related to stooling. Is able to adjust position in bed but has no movement in left arm and minimal movement in left leg so will help her reposition q2h. States she is able to get up to BSC with assistance but does not walk; wears brace on left leg when out of bed. Bilateral VALENT[place]N stockings applied. Fall risk score is moderate and bed alarm is activated. Oriented to bed controls and call light. Provided with lemon glycerin swabs as patient is currently NPO.
[2022-07-25 22:38] VITALS: BP 168/79; PULSE 78
[2022-07-25] MEDS: lisinopriL 20 MG TABLET 40 MG PO (22:38)
[2022-07-25] MEDS: PANTOPRAZOLE DR 20 MG TABLET PO (22:39)
[2022-07-26] VITALS (7 sets, daily range): BP systolic 139–170; BP diastolic 67–86; PULSE 71–81; RESP 15–18; TEMP 36.1–37.2; O2SAT 94–98
[2022-07-26 00:22] LABS: Appearance Urine UA CLEAR; Bilirubin Urine UA NEGATIVE (NEGATIVE); Color Urine UA YELLOW; Glucose Urine UA NEGATIVE (Negative); Ketones Urine UA NEGATIVE (NEGATIVE); Leukocyte Esterase Urine UA NEGATIVE (NEGATIVE); Nitrite Urine UA NEGATIVE (Negative); Occult Blood Urine UA NEGATIVE (Negative); Protein Urine UA NEGATIVE (Negative); Specific Gravity Urine UA <=1.005 (1.000-1.035); Urobilinogen Urine UA 0.2 E.U./dL (0.2); pH Urine UA 5.5 (4.5-8.0)
[2022-07-26 00:23] LABS: Bacteria Urine None Seen; Culture Indicated Urine Cult Not Indicated; RBC Urine 0-1/HPF (0-5/HPF); Squamous Epithelial Cell Urine 0-1 /HPF (0-5/HPF); WBC Urine None Seen (0-5/HPF)
[2022-07-26 05:35] LABS: Add Manual Diff / Slide Review NO; Basophils Absolute Auto 0 /uL (0-100); Basophils Percent Auto 0.1 % (0-2); Eosinophils Absolute Auto 0 /uL (0-450); Hematocrit 34.5 % (36-46); Lymphocytes Absolute Auto 200 /uL (1100-4500); Mean Corpuscular HGB Conc 34.7 % (30-36); Mean Corpuscular Hemoglobin 30.9 PG (26-34); Monocytes Absolute Auto 0 /uL (0-900); Neutrophils Absolute Auto 2800 /uL (1500-7000); Neutrophils Percent Auto 90.9 % (50-75); Platelet Count 219 X10^3/uL (150-400); Red Blood Cell Count 3.88 X10^6/uL (4.0-5.2); Red Cell Distribution Width 13.7 % (11.6-14.8); White Blood Cell Count 3.1 X10^3/uL (4.5-11.0)
[2022-07-26 05:47] LABS: Alanine Aminotransferase 13 IU/L (<35); Albumin 2.5 g/dL (3.5-5.0); Albumin Globulin Ratio 0.9 (1.0-2.8); Alkaline Phosphatase 44 U/L (38-126); Aspartate Aminotransferase 23 IU/L (14-36); BUN Creatinine Ratio 19.3 (6-22); Bilirubin Total 0.3 mg/dL (0.2-1.3); Blood Urea Nitrogen 11 mg/dL (7-17); Calcium 8.3 mg/dL (8.4-10.2); Carbon Dioxide 27 mmol/L (22-32); Chloride 106 mmol/L (98-107); Estimated Glomerular Filt Rate > 60 mL/min (>60); Globulin 2.7 g/dL (1.7-4.1); Glucose 238 mg/dL (80-110); HEMOLYSIS < 15 (0-50); Potassium 4.1 mmol/L (3.4-5.1); Sodium 139 mmol/L (137-145); Total Protein 5.2 g/dL (6.3-8.2)
[2022-07-26] MEDS: LEVOTHYROXINE 88 MCG TABLET PO (06:31)
--- NOTE | 2022-07-26 07:30 | PM.PN.1 ---
Subjective Subjective Date Patient Seen: 07/26/22 Interval history: Her family, daughter is visiting today during rounds. At baseline she has significant left-sided weakness from a stroke. They discuss that her last colonoscopy several years ago required ?a smaller scope? because of twists and turns in the colon. 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 Her daughter recalls all the recent details for her. Exam Vital Signs (past 8 hours): - 07/26/22 00:39 07/26/22 04:45 Temperature 98.5 F 99.0 F Pulse Rate 71 78 Respiratory Rate 16 15 Blood Pressure 170/84 H 154/81 H Pulse Oximetry 94 96 Oxygen Delivery Method Room Air Narrative Exam Narrative: Alert and oriented x3. Good attitude. No apparent distress. Details of her memory recall are limited. Heart is regular rate and rhythm a 2/6 systolic ejection murmur Lungs are clear to auscultation bilaterally Abdomen is soft, nontender, no organomegaly. Extremities have no ankle edema Significant left-sided upper and lower extremity weakness is present. Objective Labs Result Diagrams: 07/26/22 05:16 07/26/22 05:16 Labs: Laboratory Results - last 24 hr 07/25/22 07/25/22 07/25/22 17:20 17:20 17:20 WBC 8.1 RBC 3.94 L Hgb 12.2 Hct 35.3 L MCV 89.6 MCH 30.9 MCHC 34.5 RDW 14.0 Plt Count 247 Neut % (Auto) 89.8 H Lymph % (Auto) 5.3 L Kenton % (Auto) 4.2 Eos % (Auto) 0.4 L Baso % (Auto) 0.3 Neut # (Auto) 7300 H Lymph # (Auto) 400 L Kenton # (Auto) 300 Eos # (Auto) 0 Baso # (Auto) 0 Sodium 139 Potassium 3.1 L Chloride 105 Carbon Dioxide 29 BUN 14 Creatinine 0.63 Estimated GFR > 60 BUN/Creatinine Ratio 22.2 H Glucose 143 H Lactate Calcium 8.9 Phosphorus 2.7 L Magnesium 1.0 L Total Bilirubin 0.4 AST 25 ALT 13 Alkaline Phosphatase 49 C-Reactive Protein 1.0 Total Protein 5.5 L Albumin 2.9 L Globulin 2.6 Albumin/Globulin Ratio 1.1 Lipase Procalcitonin Urine Color Urine Appearance Urine pH Ur Specific [place] Urine Protein Urine Glucose (UA) Urine Ketones Urine Occult Blood Urine Nitrate Urine Bilirubin Urine Urobilinogen Ur Leukocyte Esterase Urine RBC Urine WBC Ur Squamous Epith Cells Urine Bacteria Ur Culture Indicated? SARS-CoV-2 (PCR) 07/25/22 07/25/22 07/25/22 17:20 17:20 17:20 WBC RBC Hgb Hct MCV MCH MCHC RDW Plt Count Neut % (Auto) Lymph % (Auto) Kenton % (Auto) Eos % (Auto) Baso % (Auto) Neut # (Auto) Lymph # (Auto) Kenton # (Auto) Eos # (Auto) Baso # (Auto) Sodium Potassium Chloride Carbon Dioxide BUN Creatinine Estimated GFR BUN/Creatinine Ratio Glucose Lactate 1.4 Calcium Phosphorus Magnesium Total Bilirubin AST ALT Alkaline Phosphatase C-Reactive Protein Total Protein Albumin Globulin Albumin/Globulin Ratio Lipase 312 H D Procalcitonin 0.22 Urine Color Urine Appearance Urine pH Ur Specific [place] Urine Protein Urine Glucose (UA) Urine Ketones Urine Occult Blood Urine Nitrate Urine Bilirubin Urine Urobilinogen Ur Leukocyte Esterase Urine RBC Urine WBC Ur Squamous Epith Cells Urine Bacteria Ur Culture Indicated? SARS-CoV-2 (PCR) 07/25/22 07/26/22 07/26/22 19:30 00:00 05:16 WBC 3.1 L D RBC 3.88 L Hgb 12.0 Hct 34.5 L MCV 89.0 MCH 30.9 MCHC 34.7 RDW 13.7 Plt Count 219 Neut % (Auto) 90.9 H Lymph % (Auto) 8.0 L Kenton % (Auto) 1.0 L Eos % (Auto) 0.0 L Baso % (Auto) 0.1 Neut # (Auto) 2800 Lymph # (Auto) 200 L Kenton # (Auto) 0 Eos # (Auto) 0 Baso # (Auto) 0 Sodium Potassium Chloride Carbon Dioxide BUN Creatinine Estimated GFR BUN/Creatinine Ratio Glucose Lactate Calcium Phosphorus Magnesium Total Bilirubin AST ALT Alkaline Phosphatase C-Reactive Protein Total Protein Albumin Globulin Albumin/Globulin Ratio Lipase Procalcitonin Urine Color Yellow Urine Appearance Clear Urine pH 5.5 Ur Specific [place] <=1.005 Urine Protein Negative Urine Glucose (UA) Negative Urine Ketones Negative Urine Occult Blood Negative Urine Nitrate Negative Urine Bilirubin Negative Urine Urobilinogen 0.2 Ur Leukocyte Esterase Negative Urine RBC 0-1/hpf Urine WBC None seen Ur Squamous Epith Cells 0-1 /hpf Urine Bacteria None seen Ur Culture Indicated? Cult not indicated SARS-CoV-2 (PCR) Negative 07/26/22 05:16 WBC RBC Hgb Hct MCV MCH MCHC RDW Plt Count Neut % (Auto) Lymph % (Auto) Kenton % (Auto) Eos % (Auto) Baso % (Auto) Neut # (Auto) Lymph # (Auto) Kent[place] # (Auto) Eos # (Auto) Baso # (Auto) Sodium 139 Potassium 4.1 Chloride 106 Carbon Dioxide 27 BUN 11 Creatinine 0.57 Estimated GFR > 60 BUN/Creatinine Ratio 19.3 Glucose 238 H Lactate Calcium 8.3 L Phosphorus Magnesium Total Bilirubin 0.3 AST 23 ALT 13 Alkaline Phosphatase 44 C-Reactive Protein Total Protein 5.2 L Albumin 2.5 L Globulin 2.7 Albumin/Globulin Ratio 0.9 L Lipase Procalcitonin Urine Color Urine Appearance Urine pH Ur Specific [place] Urine Protein Urine Glucose (UA) Urine Ketones Urine Occult Blood Urine Nitrate Urine Bilirubin Urine Urobilinogen Ur Leukocyte Esterase Urine RBC Urine WBC Ur Squamous Epith Cells Urine Bacteria Ur Culture Indicated? SARS-CoV-2 (PCR) [facility] Medical History Arthritis Chronic GERD Hyperlipidemia Hypothyroidism (acquired) Stroke Social History household members: children Smoking Status: Former smoker alcohol intake: former Assessment & Plan Assessment & Plan narrative: 1) Diarrhea: ? ? (2) Colitis: ? (3) Dehydration: ? ? ? (4) Hypokalemia due to excessive gastrointestinal loss of potassium: ? ? ? (5) Hypophosphatasia: ? ? (6) Hypomagnesemia: ? (7) Proctocolitis: Assessment & Plan narrative: Colonoscopy planned for tomorrow Ongoing diarrhea for more than 3 weeks with unclear etiology, significant dehydration and generalized weakness, concerning prognosis Previous evaluations did not reveal any specific etiology, C diff pending Continue IV fluid resuscitation, I will hold off any further antibiotics at this time while we wait for the stool studies GI is contemplating a possibility of sigmoidoscopy for possible biopsies for further evaluation, final recommendations pending Electrolyte replacement protocol, repeat labs in the morning Continue her steroids at home dose at this time, patient already got 125 mg IV steroids in the ER I am going to hold off on metronidazole and Rocephin initiated by ER, waiting for further recommendations from surgery after the sigmoidoscopy SCDs for DVT prophylaxis, Protonix for GI prophylaxis DNR status Care plan extensively discussed with the patient and family, answered all questions Time Spent With Patient Critical Care time: I spent a total of [] minutes of critical care time on this patient's care today; this time is exclusive of procedural time.
[2022-07-26 08:09] LABS: Magnesium 1.5 mg/dL (1.6-2.3)
[2022-07-26] MEDS: predniSONE 1 MG TABLET 3 MG PO (08:38)
[2022-07-26] MEDS: MAGNESIUM CHLORIDE 64 MG TABLET 128 MG PO (08:38)
[2022-07-26] MEDS: DULOXETINE 20 MG CAPSULE PO (08:38)
--- NOTE | 2022-07-26 09:06 | PC.NURSE ---
Addendum entered by Micki Conrad R.N. 07/26/22 16:35: Patient started on her bowel prep and will be npo after midnight. She is on full liquids now. Tolerating everything well. Original Note: Assess- Patient is alert and oriented x4, she has a hx of cva with l.sided weakness. She needs assistance with turning to the right side. Patients bowel tones are hypoactive x3, but heard in the lower left quad. She has not had any stools thus far, will ask hospitalist if he wants a stool sample sent for c.diff. Patient remains NPO, she is allowed bites of pudding with meds a sip of h2o, she has no complaints or needs at this time and is resting comfortably.
--- NOTE | 2022-07-26 10:18 | PM.CALLCOV.1 ---
Call Coverage Note Note Date of Patient Contact: 07/26/22 Narrative of Care Provided: 3 weeks of diarrhea with 2 sets of stool cultures negative. No elevated WBC or CRP. Infectious less likely but another C dif sent. Steroids initiated and electrolyte replacement underway. Will bowel prep this afternoon for colonoscopy tomorrow.
[2022-07-26] MEDS: DEXTROSE 5%-0.9% NS 1,000 ML 100 ML IV ×2 (10:31→21:27)
--- NOTE | 2022-07-26 13:26 | CM.DANOTE ---
Initial DCP Assessment Note Pt is a 86 yo female, goes by Luz Maria resident of [facility] , arrives w/abd pain and persistent and increased digestive issues, admitted observation Per Dr Morris: 3 weeks of diarrhea with 2 sets of stool cultures negative. No elevated WBC or CRP. Infectious less likely but another C dif sent. Steroids initiated and electrolyte replacement underway. Will bowel prep this afternoon for colonoscopy tomorrow. PCP: Darleen Myrick Payer: [employer]SLV[employer]/Michael Address: [address] ([place] as listed in the chart) [id number] Met w/patient, her son Christopher and DIL at bedside, introduced self and role. All present seem to be in good spirits today. Patient currently lives w/dtr Bhakti P# [phone] in [place], family states Bhakti is mom's healthcare recruiter right now however, family plans to move patient into an SENIOR LIVING soon, possibly in [place] where patient's late had lived. Additional contacts are as follows: Christopher Moreno, son/POA ([place]) P# [phone] and Jacky Moreno/SUSY P# [phone] Patient plans to return home w/family to assist upon discharge and requests that [facility] be resumed Placed call to Eamon at [facility], updated. Resumption order needed only if patient is inpatient, if not, only notification upon her discharge is requested MANDIE Kendrick Discharge Planning/Care Management Advanced directive, confirm from FAMILY Start: 07/25/22 21:17 Freq: Q24H Status: Active Protocol: Document 07/25/22 21:17 [facility] (Rec: 07/25/22 21:52 [facility] [id number]) Advance Directive, confirm on record Time 21:52 Person contacted Jacky Moreno Copy received No CM Discharge Assessment Start: 07/26/22 13:24 Freq: Status: Active Protocol: Document 07/26/22 13:24 [facility] (Rec: 07/26/22 13:26 [id number]) Discharge Planning Assessment Assigned Interventional Nurse MANDIE Stevenson/Assigned Designee Name Jacky Moreno dtr/SUSY Contact Information [phone] Advance Directives? Yes Advance Directives on File No History Provided By Patient,Family Member Prior Living Arrangements House Household Members children Type of transporation used prior to Relies on Others admit Independent with ADL's Yes: Needs assist with higher ADLs Is patient alert and oriented? Yes Needs Assistance With Bathing,Meal Prep,Managing Medications,Home Chores / Shopping Patient/Family Preference Home with Home Health Comment Resume [facility] Barriers to Discharge No Discharge Plan Home with Home Health Transportation Arrangement Family Referrals Initiated Home Health Additional Comment Resume [facility], patient/family state patient is current with [facility] Medicare Choice List Provided No SNF/HH Preference [facility]
[2022-07-26] MEDS: PEG3350/SOD SULF,BICARB,CL/KCL 4,000 ML SOLUTION 2000 ML PO (15:37)
[2022-07-26] MEDS: lisinopriL 20 MG TABLET 40 MG PO (21:28)
[2022-07-26] MEDS: PANTOPRAZOLE DR 20 MG TABLET PO (21:28)
[2022-07-27] VITALS (11 sets, daily range): BP systolic 126–173; BP diastolic 61–93; PULSE 65–89; RESP 14–28; TEMP 36.1–37.2; O2SAT 93–98
--- NOTE | 2022-07-27 | PATH_ITS ---
[facility] Accession Number: [id number] . 01 Material submitted: . PART A: colon - RANDOM COLON BIOPSIES PART B: colon - TRANSVERSE COLON POLYP PART C: rectum - RECTAL POLYP . 01 Clinical history: . DIGESTIVE PROBLEMS, 21 DAYS NONINFECTIVE GASTROENTERITIS AND COLITIS, . 01 Diagnosis: A. Random Colon, Biopsies: Lymphocytic colitis. Negative for granulomas, dysplasia, and malignancy. . B. Transverse Colon, Polyp, Biopsy: Tubular adenoma. . C. Rectum Polyp, Biopsy: Hyperplastic rectal mucosa with lymphocytic colitis. [facility] 07/30/2022 1335 Local . 01 Electronically signed: . Swathi Hughes MD, Pathologist NPI- [id number] . 01 Gross description: . Part A: RANDOM COLON BIOPSIES: Received in formalin are multiple fragment(s) of starr, soft tissue measuring 1.0 x 0.3 x 0.1 cm in aggregate submitted entirely in 1 cassette(s) Part B: TRANSVERSE COLON POLYP: Received in formalin is 1 fragment(s) of starr, soft tissue measuring 0.2 x 0.1 x 0.1 cm submitted entirely in 1 cassette(s) Part C: RECTAL POLYP: Received in formalin are multiple fragment(s) of starr, soft tissue measuring 0.8 x 0.2 x 0.1 cm in aggregate submitted entirely in 1 cassette(s) /[facility] 07/29/2022 1254 Local . 01 Pathologist provided ICD-10: K52.9, D12.3 . 01 CPT . 001893, 033743, 691469 Performed at: 01 [facility] [address] [place] [address] [address], [place], [place] [id number] MD Izaiah Pereira MD Phone: [phone]
[2022-07-27] MEDS: LEVOTHYROXINE 88 MCG TABLET PO (05:39)
[2022-07-27 05:56] LABS: BUN Creatinine Ratio 15.7 (6-22); Blood Urea Nitrogen 8 mg/dL (7-17); Calcium 7.8 mg/dL (8.4-10.2); Carbon Dioxide 25 mmol/L (22-32); Chloride 110 mmol/L (98-107); Estimated Glomerular Filt Rate > 60 mL/min (>60); Glucose 132 mg/dL (80-110); HEMOLYSIS < 15 (0-50); Magnesium 1.3 mg/dL (1.6-2.3); Potassium 3.1 mmol/L (3.4-5.1); Sodium 138 mmol/L (137-145)
--- NOTE | 2022-07-27 07:41 | P.PN_ITS ---
Subjective Subjective Date Patient Seen: 07/27/22 Interval history: She had a normal-appearing colon on colonoscopy today. A single polyp was apparently found and a biopsy was done. Her family are very supportive and are working with geriatric social work professor on caregiving/placement. Her electrolytes remain abnormal with a magnesium of 1.3 and a potassium of 3.1. Those will be supplemented today and then rechecked tomorrow with a tentative discharge date tomorrow back home when they ar a e normalized or closer to normal. Her primary care is Dr. Moira Myrick. Exam Vital Signs (past 8 hours): - 07/27/22 05:34 Temperature 96.9 F L Pulse Rate 70 Respiratory Rate 16 Blood Pressure 131/63 Pulse Oximetry 97 Oxygen Delivery Method Room Air Oxygen Flow Rate 0 Narrative Exam Narrative: She is alert and oriented to name and situation. No apparent distress. She has just recovered from her colonoscopy Heart is regular rate and rhythm with a very faint 2/6 systolic ejection murmur Lungs are clear to auscultation bilaterally Abdomen is soft, bowel sounds positive, nontender, no organomegaly. Extremities have no ankle edema Objective Labs Result Diagrams: 07/26/22 05:16 07/27/22 05:33 Labs: Laboratory Results - last 24 hr 07/26/22 07/27/22 07:43 05:33 Sodium 138 Potassium 3.1 L Chloride 110 H Carbon Dioxide 25 BUN 8 Creatinine 0.51 L Estimated GFR > 60 BUN/Creatinine Ratio 15.7 Glucose 132 H D Calcium 7.8 L Magnesium 1.5 L 1.3 L PFSH Medical History Arthritis Chronic GERD Hyperlipidemia Hypothyroidism (acquired) Stroke Social History household members: children Smoking Status: Former smoker alcohol intake: former Assessment & Plan Assessment & Plan narrative: 1) Diarrhea: Symptoms have resolved. Colonoscopy showed no abnormality to explain. Random biopsies were done to rule out lymphocytic colitis. ? ? (2) Colitis: Colonoscopy described as normal appearing on 07/27 ? (3) Dehydration: Resolved ? ? ? (4) Hypokalemia due to excessive gastrointestinal loss of potassium: Continue supplementation and recheck on 07/28 ? ? ? (5) Hypophosphatasia: ? ? (6) Hypomagnesemia: Continue supplementation and recheck on 07/28 ? ? ? Assessment & Plan narrative: Ongoing diarrhea for more than 3 weeks with unclear etiology, significant dehydration and generalized weakness, concerning prognosis Previous evaluations did not reveal any specific etiology, C diff pending Electrolyte replacement protocol, repeat labs in the morning Continue her steroids at home dose at this time SCDs for DVT prophylaxis, Protonix for GI prophylaxis DNR status Care plan extensively discussed with the patient and family, answered all questions Likely to discharge home on 07/28 with GI follow-up to be arranged by her PCP Darleen Myrick Time Spent With Patient Critical Care time: I spent a total of [] minutes of critical care time on this patient's care today; this time is exclusive of procedural time.
[2022-07-27] MEDS: DEXTROSE 5%-0.9% NS 1,000 ML 100 ML IV (08:19)
[2022-07-27] MEDS: POTASSIUM CHLORIDE IN WATER 10 MEQ/100 ML PIGGYBACK 100 MEQ IV (08:19)
--- NOTE | 2022-07-27 08:28 | PM.CN ---
History of Present Illness Consult details Date Patient Seen: 07/27/22 Time Patient Seen: 08:28 Chief complaint: Digestive problems, 21 days Reason for consult: diarrhea Requesting provider: Anu Valdivia Narrative: Three weeks of diarrhea and 2 sets of fecal studies (all negative), third set pending. H/o stroke with left sided weakness remaining. Has taken anti diarrhea meds at home. CTscan that I reviewed as well, persistent proctocolitis. appendicitis not c/w clinical picture. Chronic pancreatitis Meds Home Medications and Allergies Home Medications Medication Instructions Recorded Confirmed Type diphenoxylate-atropine 2.5 1 tab PO BID PRN diarrhea #20 tabs 07/15/22 07/25/22 Rx mg-0.025 mg tablet (Lomotil) atorvastatin 40 mg tablet 40 mg PO DAILY 07/19/22 07/25/22 History duloxetine 20 mg capsule,delayed 20 mg PO DAILY 07/19/22 07/25/22 History release levothyroxine 88 mcg tablet 88 mcg PO DAILY 07/19/22 07/25/22 History lisinopril 40 mg tablet 40 mg PO BEDTIME 07/19/22 07/25/22 History omeprazole 20 mg capsule,delayed 20 mg PO BEDTIME 07/19/22 07/25/22 History release prednisone 1 mg tablet 3 mg PO DAILY 07/19/22 07/25/22 History Allergies Allergy/AdvReac Type Severity Reaction Status Date / Time morphine Allergy Verified 07/19/22 10:11 Sulfa (Sulfonamide Allergy Verified 07/19/22 10:11 Antibiotics) latex AdvReac Mild Verified 07/25/22 21:32 gabapentin AdvReac Verified 07/19/22 10:11 Review of Systems Review of Systems ROS: Yes All systems reviewed with the patient and are negative except as otherwise documented Exam Vital Signs (past 8 hours): - 07/27/22 05:34 07/27/22 07:45 Temperature 96.9 F L 97.0 F L Pulse Rate 70 76 Respiratory Rate 16 20 Blood Pressure 131/63 171/87 H Pulse Oximetry 97 97 Oxygen Flow Rate 0 Oxygen Delivery Method Room Air Oxygen Flow Rate 0 Const General: cooperative and frail appearing Nutritional Appearance: average body habitus HENPR Head: normocephalic and atraumatic Face and sinus: normal facial exam Eyes General: appearance normal, both eyes and all related structures Sclera: sclerae normal Neck Neck: trachea midline Chest Chest: normal inspection of the chest Resp Effort & Inspection: normal respiratory effort and able to speak in complete sentences Cardio Rate: regular rate Rhythm: other (occasional ectopy) GI Palpation: soft Auscultation: hyperactive bowel sounds Back/Spine/Pelvis Thoracic/Lumbar Spine: kyphosis Skin General: atrophy, ecchymosis and erythema Other: infiltrated left arm IV Neuro General: patient alert, patient awake and patient oriented x3 Cognition: normal cognition Speech: speech normal Other: left sided weakness. Stroke 01/2022 Extrem General: pedal edema Psych Appearance: grossly normal Mental Status: mental status grossly normal Affect: normal affect Judgment: judgment good Objective Labs Result Diagrams: 07/26/22 05:16 07/27/22 05:33 Labs: Laboratory Results - last 24 hr 07/27/22 05:33 Sodium 138 Potassium 3.1 L Chloride 110 H Carbon Dioxide 25 BUN 8 Creatinine 0.51 L Estimated GFR > 60 BUN/Creatinine Ratio 15.7 Glucose 132 H D Calcium 7.8 L Magnesium 1.3 L PFSH Medical History Arthritis Chronic GERD Hyperlipidemia Hypothyroidism (acquired) Stroke Social History household members: children Tobacco & Substance Use Smoking Status: Former smoker alcohol intake: former Assessment & Plan Assessment & Plan narrative: persistent diarrhea negative stool studies with Cdif pending on a 3rd set. Watery diarrhea causing electrolyte imbalance. Negative inflammatory markers of CRP and WBC as well. Plan: Colonoscopy with biopsy. Steroids started on admission. COVID-19 COVID-19 status: Negative Time Spent With Patient Critical Care time: I spent a total of [] minutes of critical care time on this patient's care today; this time is exclusive of procedural time.
[2022-07-27] MEDS: LACTATED RINGERS 1,000 ML 100 ML IV (09:13)
--- NOTE | 2022-07-27 09:19 | PM.OP.COLON ---
Operative Date/Time/Diagnoses Date of procedure: 07/27/22 Time of procedure: 09:20 Pre-op diagnosis: diarrhea Post-op diagnosis: same Procedure & Clinicians Study performed: colonoscopy with mucosal biopsies and cold forceps polypectomy Same procedure as scheduled: Yes Indications: Subacute diarrhea Surgeon: Kayla Andrade Procedure Notes Procedure in detail: Preop diagnosis: Subacute diarrhea Postop diagnosis: Same Operative procedure: Colonoscopy with cold forceps polypectomy and random cold forceps biopsies Surgeon: Nissa Andrade MD Anesthetic: Mac Findings: Normal appearing colon no inflammatory process seen particularly in the Colorectal region. Random biopsies taken the mucosa throughout the colon with a separate container for rectal mucosa single polyp in the transverse taken with cold forceps biopsy Procedure: Patient placed in a lateral position. Rectal exam performed showing decreased tone no masses. Colonoscope inserted into the rectum and advanced to the ascending colon without difficulty. At that point became more torturous in obstinate. Since our goal was flex sig for biopsies I chose to retract the scope from their taking random biopsies as I went. Biopsies were taken with cold forceps. As well as a 3 mm sessile polyp in the transverse colon. Insufflation extraction scope and the above findings. Retroflex was included. Impression: No gross abnormality of the colonic mucosa to suggest a source of diarrhea. Random multiple biopsies taken along with the polypectomy of a 3 mm sessile polyp found in the transverse colon Plan: No plans to repeat colonoscopy. Await pathology results Findings: polyp(s) Specimen(s): other (Jar 1. Is random colonic mucosal biopsies, jar 2. A 3 mm sessile polyp in the transverse, jar 3. Random rectal biopsies of the mucosa) Complications: none Impression: No gross source. No gross inflammatory changes of the mucosa of the distal colon or rectum. Single polyp identified Post-procedure Recommendations: Will call with biopsy results Follow up: as needed Disposition: PACU
[2022-07-27] MEDS: ACETAMINOPHEN 325 MG TABLET 650 MG PO (10:01)
--- NOTE | 2022-07-27 10:29 | SUR.PHASEI ---
Stable PACU stay, pt transported back up to room 219, and left in stable condition.. Pt medicated in PACU for c/o L shoulder pain.
[2022-07-27] MEDS: predniSONE 1 MG TABLET 3 MG PO (11:01)
[2022-07-27] MEDS: DULOXETINE 20 MG CAPSULE PO (11:02)
[2022-07-27] MEDS: MAGNESIUM SULFATE 1 GM in SODIUM CHLORIDE 0.9% 50 ML IV (11:22)
[2022-07-27] MEDS: POTASSIUM CHLORIDE 20 MEQ TAB 40 MEQ PO (11:52)
[2022-07-27] MEDS: POTASSIUM CHLORIDE 10 MEQ TAB PO (11:52)
[2022-07-27 13:23] LABS: Magnesium 1.6 mg/dL (1.6-2.3)
[2022-07-27] MEDS: MAGNESIUM CHLORIDE 64 MG TABLET 128 MG PO (14:51)
--- NOTE | 2022-07-27 16:28 | CM.DPC ---
DCP/continued: Received notification from provider that patient will need HH resumed at time of d/c. Patient off floor this AM for colonoscopy. D/C anticipated for AM. Per notes patient currently on service with [facility]. 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 MANDIE requested that RN and RADAR SYSTEMS ENGINEER be added. Eamon requested order to resume services and add requests. RADAR SYSTEMS ENGINEER faxed to [facility] and confirmation received. D/C summary will need to be faxed upon d/c from [facility]. In addition CM team to fax clinical to PCP/Darleen Myrick for close outpatient f/u and appointment. Long discussion with patient and family today. All in agreement to d/c plan in AM with continued HH. Family working on long-term plan. Patient plans to sell residence and potentially move into either Assisted living or [facility]. Family working with outside agency for placement. P: Home in AM on 07-28 with home health resume/added services with [facility]. Dietary consult ordered for AM on 07-28 prior to d/c. Family reports that nutrition education would be helpful for future meal prep/planning. Patient with chronic diarrhea for about 1 month. Testing to this point has been negative. No GI involvement at this time. However, anticipate in future. TAMEKA
[2022-07-27 19:25] LABS: BUN Creatinine Ratio 13.3 (6-22); Blood Urea Nitrogen 8 mg/dL (7-17); Calcium 8.1 mg/dL (8.4-10.2); Carbon Dioxide 27 mmol/L (22-32); Chloride 107 mmol/L (98-107); Estimated Glomerular Filt Rate > 60 mL/min (>60); Glucose 141 mg/dL (80-110); HEMOLYSIS < 15 (0-50); Magnesium 1.4 mg/dL (1.6-2.3); Potassium 3.9 mmol/L (3.4-5.1); Sodium 138 mmol/L (137-145)
[2022-07-27] MEDS: SODIUM CHLORIDE 0.9% FLUSH 10 ML IV (21:00)
[2022-07-27] MEDS: PANTOPRAZOLE DR 20 MG TABLET PO (21:00)
[2022-07-27] MEDS: lisinopriL 20 MG TABLET 40 MG PO (21:00)
[2022-07-28 00:45] VITALS: BP 185/97; PULSE 74; RESP 14; TEMP 36.1; O2SAT 95
[2022-07-28 03:30] VITALS: BP 174/75; PULSE 71; RESP 14; TEMP 36.3; O2SAT 96
[2022-07-28 05:41] LABS: BUN Creatinine Ratio 10.9 (6-22); Blood Urea Nitrogen 7 mg/dL (7-17); Calcium 8.3 mg/dL (8.4-10.2); Carbon Dioxide 28 mmol/L (22-32); Chloride 107 mmol/L (98-107); Estimated Glomerular Filt Rate > 60 mL/min (>60); Glucose 80 mg/dL (80-110); HEMOLYSIS < 15 (0-50); Magnesium 1.5 mg/dL (1.6-2.3); Sodium 139 mmol/L (137-145)
[2022-07-28] MEDS: LEVOTHYROXINE 88 MCG TABLET PO (06:07)
[2022-07-28 07:00] VITALS: BP 141/80; PULSE 68; RESP 22; TEMP 35.8; O2SAT 97
[2022-07-28] MEDS: MAGNESIUM SULFATE 2 GM/50 ML PIGGYBACK IV (07:37)
[2022-07-28] MEDS: DULOXETINE 20 MG CAPSULE PO (08:53)
[2022-07-28] MEDS: predniSONE 1 MG TABLET 3 MG PO (08:53)
[2022-07-28] MEDS: SODIUM CHLORIDE 0.9% FLUSH 10 ML IV (08:54)
--- NOTE | 2022-07-28 10:07 | PM.DS.1 ---
History of Present Illness History of Present Illness Date Patient Seen: 07/25/22 Date of Onset of Symptoms: 07/18/22 Chief complaint: Digestive problems, 21 days Narrative: Per admitting provider: This is an 86-year-old female with history of diarrhea for the last 21 days which has been evaluated in the emergency department 2 times on 07/15 and 07/19/22 and her stool was evaluated to not be infectious however patient has required IV hydration 2 times and had low electrolyte values requiring replacement.? Patient is currently on Augmentin for colitis, has been using Imodium 1-2 times daily, denies any nausea, vomiting, fever, chills.? Denies any blood in her stool, her urine was evaluated most recently on the which was negative for infection as well.? Patient had abdominal pelvis CT on 07/15, 07/19/2022, the 1st 1 showed wall thickening of the sigmoid colon suggestive of colitis and possible perianal fistula versus artifact, CT from 07/19/2022 shows diffuse bowel wall thickening throughout the colon and rectum suspicious for nonspecific proctocolitis.? Patient and her daughter reports today that her symptoms have not improved at all.? Patient is immunosuppressed on 3 mg of prednisone daily, states she can not come off of it because every time she does her symptoms are worse. ER called hospitalist team for further evaluation and admission. We called GI/surgery for further recommendations, pending final recommendations. C diff and other stool studies are also pending at this time. I had further discussion with the family regarding any recent diet changes or medication changes that may have contributed to this. Looks like after the stroke 4 months back patient diet changed to mostly semi-solid and liquid diet and few medication changes 2 months back to help her with the pain but this diarrhea actually started 21 days ago. Again unclear etiology based on what we gained from the history. Patient feels more weak and tired, dehydrated in past few days hence family brought her to the ER. As per the daughter diarrhea happened 4 to 5 times a day watery, no blood, no other color, and past 8-10 days. Oral intake did not change much but feels not enough to keep patient active. After the stroke patient is bed-bound mostly because of the left-sided weakness but working with therapy and regaining her strength a little bit. Patient does seem to have some memory deficits but overall able to answer some questions reasonably. Denies any specific complaints at this time. Other than feeling tired. 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 Discharge provider: Kit Eduardo MD Summary Hospital Course Discharge Diagnosis: 1. Diarrhea 2. Hypokalemia, hypophosphatemia, Hypomagnesemia 3. Hypertension 4. Hypothyroid 5. Hyperlipidemia 6. Colitis Hospital Course: Ms. Moreno was admitted with diarrhea. This resolved in the hospital with no specific intervention. She was given IV fluids and electrolyes. She had a colonoscopy with no specific abnormality. She had normal CRP and WBC and given no significant change with previous antibiotics, it was thought that infectious cause was unlikely to be causing her symptoms and CT findings. Therefore antibiotics were held during hospitalization and she improved. She did have biopsies done during colonoscopy. She should follow up with Dr. Andrade on these results. She will continue on steroids, for other possible etiology of colitis such as microscopic colitis. She has calcifications in the pancreas and if it is determine that colitis is not the cause of her symptoms, she can have workup for possible chronic pancreatitis as the etiology. Exam Vital Signs (past 8 hours): - 07/28/22 03:30 07/28/22 07:00 Temperature 97.3 F L 96.4 F L Pulse Rate 71 68 Respiratory Rate 14 22 Blood Pressure 174/75 H 141/80 H Pulse Oximetry 96 97 Oxygen Flow Rate 0 0 Oxygen Delivery Method Room Air Oxygen Flow Rate 0 Narrative Exam Narrative: GEN: no acute distress CV: regular rate and rhythm, -systolic ejection murmur PULM: clear to auscultation bilaterally ABD: soft, nontender Objective Labs Result Diagrams: 07/26/22 05:16 07/28/22 05:10 Labs: Laboratory Results - last 24 hr 07/27/22 07/27/22 07/27/22 13:00 13:00 19:07 Sodium Cancelled 138 Potassium Cancelled 3.9 Chloride Cancelled 107 Carbon Dioxide Cancelled 27 BUN Cancelled 8 Creatinine Cancelled 0.60 Estimated GFR Cancelled > 60 BUN/Creatinine Ratio Cancelled 13.3 Glucose Cancelled 141 H Calcium Cancelled 8.1 L Magnesium 1.6 Cancelled 1.4 L 07/28/22 05:10 Sodium 139 Potassium 4.0 Chloride 107 Carbon Dioxide 28 BUN 7 Creatinine 0.64 Estimated GFR > 60 BUN/Creatinine Ratio 10.9 Glucose 80 Calcium 8.3 L Magnesium 1.5 L [facility] Medical History Arthritis Chronic GERD Hyperlipidemia Hypothyroidism (acquired) Stroke Social History household members: children Smoking Status: Former smoker alcohol intake: former Discharge Plan Discharge Plan Patient Disposition: Home Provider Discharge Comment: Ms. Moreno came in to the hospital with diarrhea. This improved in the hospital. She did get a colonoscopy. At discharge biopsies were pending, she should follow up with Dr. Kayla Andrade to discuss the results of these biopsies. She should follow up with her PCP within one week. Discharge orders & Medications Prescriptions: Continued diphenoxylate-atropine [Lomotil] 2.5-0.025 mg tablet 1 tab PO BID PRN (Reason: diarrhea) Qty: 20 0RF atorvastatin 40 mg tablet 40 mg PO DAILY levothyroxine 88 mcg tablet 88 mcg PO DAILY Label Comments: Take 1 tablet by mouth daily and an extra tablet 1 day per week prednisone 1 mg tablet 3 mg PO DAILY Label Comments: TAKE THREE TABLETS BY MOUTH DAILY omeprazole 20 mg capsule,delayed release(DR/EC) 20 mg PO BEDTIME Label Comments: Take 1 capsule by mouth daily 30 minutes prior to a meal lisinopril 40 mg tablet 40 mg PO BEDTIME Label Comments: TAKE 1 TABLET BY MOUTH EVERY DAY FOR HIGH BLOOD PRESSURE duloxetine 20 mg capsule,delayed release(DR/EC) 20 mg PO DAILY Label Comments: Take 1 capsule by mouth once daily. Increase to 2 capsules after 1-2 weeks as tolerated Discharge Data Attending Provider: Pino Jarrett
--- NOTE | 2022-07-28 10:38 | CM.DPC ---
DCP Cont: Faxed Dr. Myrick over the DC Summary per family's request. Faxed [facility] DC Summary, resumption orders already sent, and spoke to Franco at [facility] and let her know. MS KellyW, had met with family, and reassured them that milk runner would see patient this am. P: Patient is discharging home today with [facility]. Renetta Al RN/[employer]
--- NOTE | 2022-07-28 10:54 | DIET.CONS ---
Dietary Consultation Note Admission Date: 07/25/2022 20:02 Assessment: 86y F admitted for 3w of ongoing GI issues of watery diarrhea referred to nutrition for supportive education. Pt had stroke in January of 2022 resulting in left sided deficits. Pt went to acute rehab for 8w, now lives at home with supportive daughter who relocated from [place] for 01/06 caregiving. Home PT/OT/speech. Pt endorses some nervous feeling due to large life shift since spring and unknown regarding adult family home or alf care placement. Pt has hx chronic constipation including hemorrhoids which makes this change in BM texture alarming for her. Pt on alf stool softeners. Colonoscopy came back inconclusive with biopsies out for review. Pts daughter providing mostly pureed diet though pt can tolerate Mech Soft. Breakfast often cream of wheat with fruit, lunch and dinner often soup based. Pt has been consuming more fruits (pears, watermelon, cantaloupe, stone fruits) over the past month due to seasonality- pt consuming ~1c at one sitting. Pt also with increased intake sweets: cookies and brownies. Pt with low electrolytes (mg, K+, phos) which are being repleted with IVF hydration. Pt with calcifications in pancreas, mildly elevated lipase on admit, hx heavy etoh use with 43y sobriety. Ht: 152.4 cm Wt: 55.3 kg BMI: 23.8 UBW: 55kg Last BM: 07/28/22 (07/28/22 07:00) MNA: 13 Monico Score: 16 Diet: 07/27/22 Lunch General (Regular) Diet Diet Modifications: high fiber 07/27/22 Dinner Dysphagia Diet Diet Modifications: Liquid consistency: Normal/Thin Food texture: Dysphagia Mechanical Soft Nutrition Percent Meal Consumed 100% 07/27/22 17:46 Percent Meal Consumed 5% 07/27/22 15:08 Percent Meal Consumed 100% 07/26/22 18:11 Percent Meal Consumed 100% 07/26/22 12:31 Labs: RBC 3.88 X10^6/uL (4.0-5.2) L 07/26/22 05:16 Hgb 12.0 g/dL (12.0-16.0) 07/26/22 05:16 Hct 34.5 % (36-46) L 07/26/22 05:16 Creatinine 0.64 mg/dL (0.52-1.04) 07/28/22 05:10 Lactate 1.4 mmol/L (0.7-2.1) 07/25/22 17:20 Nutrition Diagnosis: altered nutrition related laboratory values (electrolytes) r/t GI sx (diarrhea) aeb pt reports 3w watery diarrhea >4x/d, K+ 3.1, phos 2.7, Mg 1.0 on admit c repletion. Interventions: 1. Educated pt and family members in room on laxative effects of some fruits containing natural sugar alcohols including: apples, pears, stone fruits, melons. Encouraged pt to limit these fruits to no more than 1/2c at a time. Pt currently enjoying 1 c several times daily. 2. Educated pt and family on supportive nutrition through times of diarrhea including regular intake soluble fiber and stool thickening foods: banana, oats, beans, rice, squash, potato as well as reinforced use of Immodium as directed. Recc inclusion of electrolyte beverages with diarrhea events: liquid IV and/or gatorade, pedialyte. 3. Educated pt and family on ways to increase soluble fiber intake in soups and alternate meal options. Monitoring/Evaluations: pt to f/u c GI specialist Electronically Signed by: Peggy Sanders 07/28/22 10:54 Clinical Dietitian [address] [id number]
--- NOTE | 2022-07-28 12:20 | PC.NURSE ---
Discharge Note Patient A&O, VSS, RA, no complaints of pain/discomfort. Discharge packet reviewed with patient/family, all questions/concerns addressed. PIV/TELE discontinued. Patient brief change, bed bath given and dressed by nursing staff. Belongings packed by staff and family. Patient assisted into wheelchair. Patient taken down via wheelchair to POV.
--- NOTE | 2022-08-03 19:48 | PC.NURSE ---
late entry: ceftriaxone sodium 2000 mg in 100ml of sodium chloride via IV infused at 2020.
--- NOTE | 2022-08-15 11:51 | PC.NURSE ---
Late Entry: Ceftriaxone started in ED started 07/25 @ 1937 completed 2014. No ill effects.
== END 2022-07-28 12:00 | disposition home or self-care (01) ==
LOC: ED 19:40 → AC 20:09
PROVIDERS: Family Medicine; Surgery; Admitting Provider Family Medicine; Emergency Provider Nurse Practitioner Critical Care Medicine; Referring Provider Nurse Practitioner Critical Care Medicine; Visit Provider Family Medicine
PROC: 0DJD8ZZ Inspection of Lower Intestinal Tract, Via Natural or Artificial Opening Endoscopic (ICD-10-PCS; CPT 45378; principal; 2022-07-27 09:00)
DX: K52.832 Lymphocytic colitis (principal); E86.0 Dehydration; E87.6 Hypokalemia; E83.39 Other disorders of phosphorus metabolism; E83.42 Hypomagnesemia; K21.9 Gastro-esophageal reflux disease without esophagitis; E78.5 Hyperlipidemia, unspecified; E03.9 Hypothyroidism, unspecified; I10 Essential (primary) hypertension; Z86.73 Personal history of transient ischemic attack (TIA), and cerebral infarction without residual deficits; Z20.822 Contact with and (suspected) exposure to COVID-19; K62.1 Rectal polyp; D12.3 Benign neoplasm of transverse colon
CPT/HCPCS: 45380; 00812; 36415; 36592; 74177; 80048; 80053; 81001; 83605; 83690; 83735; 84100; 84145; 85025; 86140; 87635; 96361; 96365; 96366; 96367; 96375; 99284; C9803; G0378; A9270; J0696; J1885; J2704; J2930; J3475; Q9967